=== PATIENT | male | born 1955 | race Caucasian/White ===

== ENCOUNTER 2020-10-12 09:25 | Inpatient (IN) | payer OTHER, SELFPAY ==
[~2020-10-12] VITALS: Ht 180.3 cm; Wt 81.6 kg
[~2020-10-12 09:25] MED LIST: IBUP-1017 PO; PCN PO
--- NOTE | 2020-10-12 09:28 | NUR ---
Patient to ER bed 08 to gown for evaluation. Side rails up.
--- NOTE | 2020-10-12 09:30 | NUR ---
Pt walked in to ER with c/o left foot wound. Reports having a blister and it opened. Pt is currently taking keflex and bactrim for wound but it's gotten worse. Redness and swelling noted to side of left foot. Pt reports pain 8/10. V/S stable,
[2020-10-12 09:34] VITALS: BP_SYST 125
--- NOTE | 2020-10-12 09:35 | NUR ---
ER Dr. Petersen at bedside examining patient.
--- NOTE | 2020-10-12 09:55 | NUR ---
# 20 gauge angiocath placed to LFA. Use of asceptic technique. Opsite placed over site. Blood return noted. Blood for lab drawn from site. Flushed with 10 cc of normal saline. No evidence of infiltration noted. Patient tolerated well.
--- NOTE | 2020-10-12 10:04 | NUR ---
Radiology at bedside for CXR and Foot x-ray
[2020-10-12 10:19] LABS: BASOPHILS # (AUTO) 0.1 K/uL (0.0-0.2); BASOPHILS % (AUTO) 0.8 % (0.0-2.0); EOSINOPHILS # (AUTO) 0.1 K/uL (0.0-0.4); EOSINOPHILS % (AUTO) 0.5 % (0.0-4.0); HEMATOCRIT 43.1 % (36-54); HEMOGLOBIN 14.2 g/dL (14.0-18.0); LYMPHOCYTES # (AUTO) 1.6 K/uL (1.0-5.5); LYMPHOCYTES % (AUTO) 10.5 % (20.5-51.5); MEAN CORPUSCULAR HEMOGLOBIN 30 pg (27-31); MEAN CORPUSCULAR HGB CONC 33 % (32-36); MEAN CORPUSCULAR VOLUME 91 fL (79.0-98.0); MONOCYTES # (AUTO) 1.3 K/uL (0.0-1.0); MONOCYTES % (AUTO) 8.6 % (1.7-9.3); NEUTROPHILS # (AUTO) 11.9 K/uL (1.8-7.7); NEUTROPHILS % (AUTO) 79.6 % (40.0-70.0); PLATELET COUNT (AUTO) 292 K/uL (130-430); RED BLOOD CELL COUNT(AUTO) 4.75 MIL/uL (4.2-6.2); RED CELL DISTRIBUTION WIDTH 13.4 % (9.0-15.0); WHITE BLOOD COUNT (AUTO) 14.9 K/uL (4.8-10.8)
[2020-10-12] MEDS ORDERED: GLUXR500 PO (10:26)
[2020-10-12] MEDS ORDERED: METF-518 PO (10:26)
[2020-10-12] MEDS ORDERED: GLIP10TA11 PO (10:26)
--- NOTE | 2020-10-12 10:26 | NUR ---
Med rec and belongings list completed. Pt's family aware of admit.
[2020-10-12 11:16] LABS: CALCIUM 8.6 mg/dL (8.4-11.0); POTASSIUM 4.5 mmol/L (3.5-5.1)
[2020-10-12 11:17] LABS: CREATININE 0.93 mg/dL (0.55-1.30)
[2020-10-12 11:20] LABS: INR 0.9 (0.80-1.20); PROTHROMBIN TIME 9.7 SECS (9.5-12.5)
[2020-10-12 11:23] LABS: TOTAL BILIRUBIN 0.5 mg/dL (0.0-1.0)
--- NOTE | 2020-10-12 11:40 | NUR ---
Admit orders received from Dr. Matute, pt to go to med-surg bed 119B
[2020-10-12] MEDS ORDERED: PIPERACILLIN/TAZO 4.5 GM in NS 100 ML IV ONE (11:45)
[2020-10-12] MEDS ORDERED: PIPERACILLIN/TAZOBACTAM 4.5 GM/VIAL (ZOSYN) IV ONE (11:49)
--- NOTE | 2020-10-12 12:02 | NUR ---
Patient will be admitted to care of Dr. Matute. Admitted to med-surg unit. Will go to room 119B. Belongings list completed. Complete and up to date summary report printed. SBAR report to be given at bedside with opportunity for questions.
--- NOTE | 2020-10-12 12:30 | NUR ---
Patient received ER nurse gave report on patient, in stable condition, A&0 x4 no complaint of pain or discomfort. Educated on plan of care and unit, patient verbalized understanding. IV is infusing, no sign s or symptoms infiltration. Bed is in lowest position, call light within reach. Fall and aspiration precautions are in place. Will continue to monitor.
[2020-10-12 12:35] VITALS: BP_SYST 145
[2020-10-12 13:32] VITALS: BP_SYST 145
[2020-10-12] MEDS ORDERED: GLUCOSE (DEXTROSE) ORAL GEL -Adults PO PRN (13:45)
[2020-10-12] MEDS ORDERED: D5W 1,000 ML IV PRN (13:45)
[2020-10-12] MEDS ORDERED: DEXTROSE 50%-WATER 50 ML DISP.SYRIN IVP PRN (13:45)
[2020-10-12] MEDS: VANCOMYCIN HCL 1,250 MG in NS 250 ML IV SCH (15:15)
[2020-10-12 15:16] VITALS: BP_SYST 138
[2020-10-12] MEDS: PIPERACILLIN/TAZO 3.375/DEX-IS 50 ML IV SCH (17:38)
[2020-10-12] MEDS: INSULIN REGULAR, HUMAN 100 UNITS/ML, 10 ML VIAL (humuLIN R) SUBCUT PRN ×2 (17:41→20:41)
[2020-10-12] MEDS: OXYCODONE/ACETAMINOPHEN *10*mg/325 mg TABLET PO PRN (17:44)
[2020-10-12 19:00] VITALS: BP_SYST 104
--- NOTE | 2020-10-12 19:15 | NUR ---
change of shift.pt.presents quiescent affect;calm,resting viewing tv programming via table/cell phone.wound;rt.foot.pt.presents diabetic hx. pt.presents iv access location lt.forearm intact;iv fluids ns flush infusing.pt.stated he can ambulate w/out assistance.urinal w/in access of the pt.general status stable.respiratory status stable;unlabored@room air.call light/telephone w/in access of the pt.
[2020-10-12 20:00] VITALS: BP_SYST 104
--- NOTE | 2020-10-12 20:00 | NUR ---
pt.assessed.v/s assessed values wnl.no c/o pain,nausea.iv access intact patent iv fluids ns-flush infusing.i have attended to the urinal measured placed w/in access of the pt.general status stable.respiratory status stable.pt.capable to reposition self.i have assessed the wound;rt.foot.call light/telephone w/in access of the pt.
--- NOTE | 2020-10-12 20:30 | NUR ---
blood glucose assessed value;279mg/dl.
[2020-10-12] MEDS: ENOXAPARIN SODIUM 40 MG/0.4 ML SYRINGE SUBCUT SCH (20:39)
--- NOTE | 2020-10-12 21:00 | NUR ---
2100pmedications administered.pt.capable to ingest the po medications w/out difficulty.i have administered insulin;regular:6-units. pt.requested snacks:milk/lisa crackers provided.no c/o pain,,nausea.call light/telephone w/in access of the pt.
--- NOTE | 2020-10-12 22:00 | NUR ---
pt.assessed.pt.presents quiescent affect;calm,resting.i have attended to the urinal measured place w/in access of the pt.iv access intact iv fluids infusing.no c/o pain,nausea.pt.capable to reposition self.general status stable.respiratory status stable;unlabored.call light/telephone w/in access of the pt.
[2020-10-13] VITALS: BP_SYST 108
--- NOTE | 2020-10-13 | NUR ---
pt.assessed.v/s assessed values wnl.no c/o pain,nausea.no requests posited@this hour.iv access intact iv fluids infusing. i have administered zosyn abx ivpb midnight dose.pt.capable to reposition self.general status stable.respiratory status stable;unlabored.call light/telephone w/in access of the pt.
[2020-10-13] MEDS: PIPERACILLIN/TAZO 3.375/DEX-IS 50 ML IV SCH ×5 (00:05→23:55)
[2020-10-13] MEDS: OXYCODONE/ACETAMINOPHEN *10*mg/325 mg TABLET PO PRN ×3 (00:40→21:55)
--- NOTE | 2020-10-13 00:45 | NUR ---
pt.requested medication;pain.i have administered percocet;10/325mg po.to assess the efficacy of the pain medication per pain mgx protocol.no additional requests posited @this hour.
--- NOTE | 2020-10-13 02:00 | NUR ---
pt.assessed.pt.presents quiescent affect;calm,somnolent.per flacc pain mgx pt.absent facial grimaces/body posturing.iv access intact iv fluids infusing.urinal attended to measured placed w/in access of the pt.pt.capable to reposition self.call light/telephone w/in access of the pt.
--- NOTE | 2020-10-13 03:00 | NUR ---
i have administered vancomycin abx ivpb 0300a dose@this hour.
[2020-10-13] MEDS: VANCOMYCIN HCL 1,250 MG in NS 250 ML IV SCH ×2 (03:17→15:19)
--- NOTE | 2020-10-13 04:00 | NUR ---
pt.assessed.pt.presents quiescent affect;calm,somnolent.per flacc pain mgx pt.absent facial grimaces/body posturing.iv access intact iv fluids/vancomycin abx administration in progress.pt.capable to reposition self.general status stable.respiratory status stable;unlabored.call light/telephone w/in access of the pt.urinal attended to placed w/in access of the pt.
[2020-10-13] MEDS: INSULIN REGULAR, HUMAN 100 UNITS/ML, 10 ML VIAL (humuLIN R) SUBCUT PRN ×4 (06:43→21:56)
--- NOTE | 2020-10-13 06:45 | NUR ---
pt.assessed.blood glucose assessed value;257mg/dl.i have administered insulin;regular-6units.no c/o pain,nausea.i have attended to the urinal measured placed w/in access of the pt.i have attended to the wound care;photographed the wound.pt.capable to reposition self.i have administered zosyn abx ivpb 600a dose.call light/telephone w/in access of the pt.
[2020-10-13 07:06] LABS: BASOPHILS # (AUTO) 0.1 K/uL (0.0-0.2); BASOPHILS % (AUTO) 0.5 % (0.0-2.0); EOSINOPHILS # (AUTO) 0.2 K/uL (0.0-0.4); EOSINOPHILS % (AUTO) 1.6 % (0.0-4.0); HEMATOCRIT 38.9 % (36-54); HEMOGLOBIN 12.8 g/dL (14.0-18.0); LYMPHOCYTES # (AUTO) 2.6 K/uL (1.0-5.5); LYMPHOCYTES % (AUTO) 22.1 % (20.5-51.5); MEAN CORPUSCULAR HEMOGLOBIN 30 pg (27-31); MEAN CORPUSCULAR HGB CONC 33 % (32-36); MEAN CORPUSCULAR VOLUME 90 fL (79.0-98.0); MONOCYTES % (AUTO) 8.3 % (1.7-9.3); NEUTROPHILS % (AUTO) 67.5 % (40.0-70.0); PLATELET COUNT (AUTO) 246 K/uL (130-430); RED CELL DISTRIBUTION WIDTH 13.6 % (9.0-15.0); WHITE BLOOD COUNT (AUTO) 11.9 K/uL (4.8-10.8)
[2020-10-13 07:31] LABS: CALCIUM 8.4 mg/dL (8.4-11.0); CREATININE 0.74 mg/dL (0.55-1.30); POTASSIUM 4.5 mmol/L (3.5-5.1)
--- NOTE | 2020-10-13 08:50 | NUR ---
Opening note Patient is resting in bed A&O x4 no complaint of pain or discomfort, no signs or symptoms of respiratory distress. IV is in place no signs or symptoms of infiltration. Educated patient on plan of care, patient verbalized understanding. swelling in foot is going down. Bed is in lowest position , call light within reach. Fall and aspiration precautions are in place. will continue to monitor.
[2020-10-13 08:55] VITALS: BP_SYST 104
[2020-10-13] MEDS: lisinopriL 5 MG TABLET PO SCH (09:17)
[2020-10-13 09:40] LABS: C-REACTIVE PROTEIN QUANT 7.5 mg/dL (0-0.5)
[2020-10-13 11:30] VITALS: BP_SYST 120
--- NOTE | 2020-10-13 14:50 | NUR ---
RN note Assessed patients wound with wound care nurse Abe. Cleansed and applied dressing with new orders from Abe. Abe recommends surgical consult for patients wound, will inform .
[2020-10-13] MEDS ORDERED: BALSAM PERU/CASTOR OIL 60 GM OINT...G. TP SCH (15:15)
--- NOTE | 2020-10-13 15:23 | NUR ---
Dietitian Recommendations * Recommend [facility] diet w/ Hira BID (supplement provides 180 kcal/day, 5 gm protein/day) ELISE GOTTLIEB Please refer to Nutrition Assessment for details. Addendum: 10/13/20 at [address] Amended: Links added.
--- NOTE | 2020-10-13 15:28 | NUR ---
WOUND EVALUATION: Wound Consult received from Dr. Matute. Thank you, Dr. Matute, for the consult. Patient received in a Hurt Bed with a mattress, awake, alert, and oriented. Patient is unable to turn independently. Ranulfo Score is a 20. Past Medical History: Diabetes Mellitus, Cholecystectomy. Recent Labs: WBC 11.9, RBC 4.30, hemoglobin 12.8, hematocrit 38.9. Electrolytes within normal limits. Glucose 253, POC glucose 224, C-reactive protein 7.5. Microbiology: Blood culture results x2 in progress. Intrinsic factors that delay wound healing: Diabetes Mellitus, Hyperglycemia. Extrinsic factors that delay wound healing: Decreased mobility. Wound Assessment: 1. Right Lateral Foot near Fifth Metatarsal Head: Diabetic Ulcer, present on admission. Wound site has large bulla with open area. Wound bed has 65% yellow tissue, 5% red tissue, and 30% black tissue with red discoloration (bulla). No odor, scant yellow-red drainage. Gemini-wound intact. Measures 4.5 cm x 4.2 cm x 0.5 cm. Recommend: Cleanse wound with normal saline. Apply moisture barrier cream to gemini-wound. Apply Venelex ointment to wound bed. Cover with foam dressing. Wrap with Alis wrap. Perform wound care daily, and as needed for dressing soiling or dislodgement. Also recommend: Reposition patient every 2 hours with pillow support and off-load pressure areas with pillows for pressure re-distribution. Offload, elevate and float bilateral heels with pillows. Perform skin care and monitor skin integrity Q shift. Recommend surgical consult.
[2020-10-13] MEDS ORDERED: BALSAM PERU/CASTOR OIL 60 GM OINT...G. TP ONE (15:30)
[2020-10-13 15:46] VITALS: BP_SYST 104
--- NOTE | 2020-10-13 18:45 | NUR ---
Closing note Patient is resting in bed A&O x4 no complaint of pain or discomfort, no signs or symptoms of respiratory distress. IV is in place no signs or symptoms of infiltration. All needs were met. Bed is in lowest position , call light within reach. Fall and aspiration precautions are in place. Will endorse report to shift stacker.
[2020-10-13 20:00] VITALS: BP_SYST 114
--- NOTE | 2020-10-13 20:14 | NUR ---
OPENING NOTES RECEIVED PATIENT RESTING IN BED, NO SIGNS OF DISTRESS NOTED. CALL LIGHT WITHIN REACH, PATIENT DEMONSTRATES PROPER USAGE OF CALL LIGHT. BED ALARM ON, BED AT LOWEST POSITION, BED LOCKED. FALL, RESPIRATORY, SAFETY, AND ASPIRATION PRECAUTIONS IN PLACE. DRESSING CHANGE WAS PROVIDED BY AM SHIFT, PER AM NURSE. WILL CONTINUE TO MONITOR. Addendum: 10/13/20 at 2015 by Kim Lobo RN WRONG TIME- CORRECT TIME IS 1914
--- NOTE | 2020-10-13 20:15 | NUR ---
PATIENT RESTING, NO SIGNS OF DISTRESS NOTED. PATIENT REFUSES TO HAVE BOTH SIDE RAILS TO BE ELEVATED. PATIENT EDUCATION PROVIDED OF THE RISKS FOR FALLS, AND PATIENT REFUSES. CALL LIGHT WITHIN REACH. PATIENT DEMONSTRATES PROPER USAGE. WILL CONTINUE TO MONITOR CLOSELY.
[2020-10-13] MEDS: ENOXAPARIN SODIUM 40 MG/0.4 ML SYRINGE SUBCUT SCH (21:55)
[2020-10-14 01:10] VITALS: BP_SYST 101
[2020-10-14] MEDS: VANCOMYCIN HCL 1,250 MG in NS 250 ML IV SCH ×2 (02:49→16:30)
[2020-10-14] MEDS: PIPERACILLIN/TAZO 3.375/DEX-IS 50 ML IV SCH ×3 (05:59→17:48)
--- NOTE | 2020-10-14 06:25 | NUR ---
CLOSING NOTES PATIENT RESTING IN BED, NO SIGNS OF DISTRESS NOTED. CALL LIGHT WITHIN REACH, PATIENT DEMONSTRATED PROPER USAGE OF CALL LIGHT. BED ALARM ON, BED AT LOWEST POSITION, BED LOCKED. FALL, RESPIRATORY, SAFETY, AND ASPIRATION PRECAUTIONS IN PLACE THROUGHOUT SHIFT. ALL NEEDS MET THROUGHOUT SHIFT. WILL ENDORSE CARE TO ONCOMING SHIFT.
[2020-10-14] MEDS: INSULIN REGULAR, HUMAN 100 UNITS/ML, 10 ML VIAL (humuLIN R) SUBCUT PRN ×4 (06:33→21:10)
--- NOTE | 2020-10-14 07:10 | NUR ---
opening note Received SBAR from night RN, patient in bed, respirations even, non labored, bed in low and locked position call light within reach, patient only has 1 bed rail up refuses to allow additional bed rails or bed alarm to be used. Educated patient on the indications and safety regarding bed rails and bed alarm, answered all questions, patient verbalized understanding, patient continues to refuse. IVF's running as ordered.
[2020-10-14 08:00] VITALS: BP_SYST 100
[2020-10-14] MEDS: OXYCODONE/ACETAMINOPHEN *10*mg/325 mg TABLET PO PRN ×2 (08:56→20:58)
[2020-10-14] MEDS: lisinopriL 5 MG TABLET PO SCH (08:56)
[2020-10-14] MEDS: BALSAM PERU/CASTOR OIL 60 GM OINT...G. TP SCH (09:00)
[2020-10-14 12:07] VITALS: BP_SYST 112
--- NOTE | 2020-10-14 13:35 | NUR ---
wound care provided wound care, see mst shift assessment
[2020-10-14 14:35] LABS: ALBUMIN 2.4 g/dL (3.4-4.8); CALCIUM 8.3 mg/dL (8.4-11.0); CREATININE 1.18 mg/dL (0.55-1.30); POTASSIUM 4.3 mmol/L (3.5-5.1); TOTAL BILIRUBIN 0.3 mg/dL (0.0-1.0)
--- NOTE | 2020-10-14 15:43 | NUR ---
CONSULTATION: REASON FOR CONSULT: CELLULITIS AND ULCERATION OF RT FOOT CONSULTING PHYSICIAN: ELSA ORDERED BY: STEPHEN SPOKE WITH [facility] [phone]
[2020-10-14 16:08] VITALS: BP_SYST 96
--- NOTE | 2020-10-14 16:55 | NUR ---
CONSULTATION: REASON FOR CONSULT: CELLULITIS CONSULTING PHYSICIAN: LEORA ORDERED BY: STEPHEN SPOKE WITH [facility] [phone]
--- NOTE | 2020-10-14 19:24 | NUR ---
closing note Provided sbar to night RN, patient in bed, respirations even, non labored, bed in low and locked position call light within reach, Patient continues to refuse bed alarm or bed rails. endorsed care to night rn
--- NOTE | 2020-10-14 19:30 | NUR ---
opening note rcvd pt from dayshift rn. patient in bed, respirations even, non labored, bed in low and locked position call light within reach, patient only has 1 bed rail up refuses to allow additional bed rails or bed alarm to be used. IVF's running as ordered on the LFA#22 gauge, no infiltration. urinal at bedside. safety, fall precautios in place. will continue to monitor.
[2020-10-14 20:00] VITALS: BP_SYST 112
[2020-10-14] MEDS: LINEZOLID 300 ML IV SCH (20:59)
[2020-10-14] MEDS: ENOXAPARIN SODIUM 40 MG/0.4 ML SYRINGE SUBCUT SCH (21:00)
--- NOTE | 2020-10-14 21:00 | NUR ---
RN Rounds Pt vital signs stable. pt tolerated medications. will continue to monitor .
[2020-10-15] MEDS: PIPERACILLIN/TAZO 3.375/DEX-IS 50 ML IV SCH ×2 (00:43→06:30)
[2020-10-15 01:55] VITALS: BP_SYST 109
[2020-10-15] MEDS: INSULIN REGULAR, HUMAN 100 UNITS/ML, 10 ML VIAL (humuLIN R) SUBCUT PRN ×4 (06:28→21:31)
[2020-10-15 06:52] LABS: CALCIUM 8.1 mg/dL (8.4-11.0); CREATININE 0.85 mg/dL (0.55-1.30); POTASSIUM 4.5 mmol/L (3.5-5.1)
--- NOTE | 2020-10-15 07:36 | NUR ---
CLOSING NOTE: patient in bed, respirations even, non labored, bed in low and locked position call light within reach, patient only has 1 bed rail up refuses to allow additional bed rails or bed alarm to be used. IVF's running as ordered on the LFA#22 gauge, no infiltration. urinal at bedside. safety, fall precautios in place. will endorse to dayshift
[2020-10-15 08:00] VITALS: BP_SYST 107
--- NOTE | 2020-10-15 08:00 | NUR ---
OPENING NOTES: PATIENT EATING BREAKFAST. NO SIGNS OF ACUTE DISTRESS NOTED. FALL AND SAFETY PRECAUTION REINFORCED. CALL LIGHT WITHIN REACH.
[2020-10-15 08:12] LABS: BASOPHILS # (AUTO) 0.2 K/uL (0.0-0.2); BASOPHILS % (AUTO) 1.5 % (0.0-2.0); EOSINOPHILS # (AUTO) 0.3 K/uL (0.0-0.4); EOSINOPHILS % (AUTO) 1.8 % (0.0-4.0); HEMATOCRIT 37.9 % (36-54); HEMOGLOBIN 12.9 g/dL (14.0-18.0); LYMPHOCYTES # (AUTO) 2.7 K/uL (1.0-5.5); LYMPHOCYTES % (AUTO) 19.2 % (20.5-51.5); MEAN CORPUSCULAR HEMOGLOBIN 31 pg (27-31); MEAN CORPUSCULAR HGB CONC 34 % (32-36); MEAN CORPUSCULAR VOLUME 91 fL (79.0-98.0); MONOCYTES # (AUTO) 1.4 K/uL (0.0-1.0); MONOCYTES % (AUTO) 10.1 % (1.7-9.3); NEUTROPHILS # (AUTO) 9.5 K/uL (1.8-7.7); NEUTROPHILS % (AUTO) 67.4 % (40.0-70.0); PLATELET COUNT (AUTO) 405 K/uL (130-430); RED BLOOD CELL COUNT(AUTO) 4.18 MIL/uL (4.2-6.2); RED CELL DISTRIBUTION WIDTH 13.3 % (9.0-15.0); WHITE BLOOD COUNT (AUTO) 14.1 K/uL (4.8-10.8)
[2020-10-15] MEDS: lisinopriL 5 MG TABLET PO SCH (08:29)
[2020-10-15] MEDS: LINEZOLID 300 ML IV SCH ×2 (08:29→21:37)
[2020-10-15] MEDS: BALSAM PERU/CASTOR OIL 60 GM OINT...G. TP SCH (09:12)
[2020-10-15 12:14] VITALS: BP_SYST 125
[2020-10-15 16:35] VITALS: BP_SYST 127
--- NOTE | 2020-10-15 19:21 | NUR ---
CLOSING NOTES; PATIENT RESTING IN BED. NO SIGNS OF ACUTE DISTRESS NOTED. WOUND DRESSING CHANGED. FALL AND SAFETY PRECAUTION REINFORCED. CALL LIGHT WITHIN REACH.
--- NOTE | 2020-10-15 19:30 | NUR ---
opening note rcvd pt from dayshift rn. patient in bed, respirations even, non labored, bed in low and locked position call light within reach, IVF's running as ordered on the LFA#22 gauge, no infiltration. urinal at bedside. safety, fall precautios in place. will continue to monitor.
[2020-10-15 20:00] VITALS: BP_SYST 108
[2020-10-15] MEDS: CEFEPIME 1 GM in D5W 50 ML IV SCH (21:24)
[2020-10-15] MEDS: ENOXAPARIN SODIUM 40 MG/0.4 ML SYRINGE SUBCUT SCH (21:25)
[2020-10-15] MEDS: OXYCODONE/ACETAMINOPHEN *10*mg/325 mg TABLET PO PRN (21:25)
--- NOTE | 2020-10-15 21:30 | NUR ---
RN Rounds Pt vital signs stable. pt tolerated medications. will continue to monitor .
--- NOTE | 2020-10-15 22:30 | NUR ---
Reinforced pt dressing to R foot
--- NOTE | 2020-10-16 | NUR ---
RN ROUNDS PT VITAL SIGNS STABLE. RESTING IN BED. IVF AND ABX RUNNING ORDERED NO SIGNS OF INFILTRATION .WILL CTM
[2020-10-16 00:56] VITALS: BP_SYST 120
[2020-10-16] MEDS: INSULIN REGULAR, HUMAN 100 UNITS/ML, 10 ML VIAL (humuLIN R) SUBCUT PRN ×4 (06:07→21:49)
--- NOTE | 2020-10-16 06:44 | NUR ---
CLOSING NOTES PATIENT RESTING IN BED. NO SIGNS OF ACUTE DISTRESS NOTED. BREATHING ON ROOM AIR NONLABORED. FALL AND SAFETY PRECAUTION REINFORCED. CALL LIGHT WITHIN REACH.
[2020-10-16 08:00] VITALS: BP_SYST 115
--- NOTE | 2020-10-16 08:00 | NUR ---
Initial note: Patient is alert, oriented x4, denies any pain or discomfort at this time. Right foot wound is with a foam dressing with 50% drainage oozing on the dressing. Will change a new dressing later this morning.
[2020-10-16] MEDS: lisinopriL 5 MG TABLET PO SCH (09:09)
[2020-10-16] MEDS: CEFEPIME 1 GM in D5W 50 ML IV SCH ×2 (09:10→20:34)
[2020-10-16] MEDS: LINEZOLID 300 ML IV SCH ×2 (09:34→21:48)
[2020-10-16] MEDS: BALSAM PERU/CASTOR OIL 60 GM OINT...G. TP SCH (09:35)
[2020-10-16 11:18] LABS: BASOPHILS # (AUTO) 0.1 K/uL (0.0-0.2); BASOPHILS % (AUTO) 0.5 % (0.0-2.0); EOSINOPHILS # (AUTO) 0.2 K/uL (0.0-0.4); EOSINOPHILS % (AUTO) 1.9 % (0.0-4.0); HEMATOCRIT 41.6 % (36-54); HEMOGLOBIN 13.5 g/dL (14.0-18.0); LYMPHOCYTES # (AUTO) 1.7 K/uL (1.0-5.5); LYMPHOCYTES % (AUTO) 14.2 % (20.5-51.5); MEAN CORPUSCULAR HEMOGLOBIN 29 pg (27-31); MEAN CORPUSCULAR HGB CONC 32 % (32-36); MEAN CORPUSCULAR VOLUME 90 fL (79.0-98.0); MONOCYTES % (AUTO) 8.5 % (1.7-9.3); NEUTROPHILS # (AUTO) 9.2 K/uL (1.8-7.7); NEUTROPHILS % (AUTO) 74.9 % (40.0-70.0); PLATELET COUNT (AUTO) 303 K/uL (130-430); RED BLOOD CELL COUNT(AUTO) 4.65 MIL/uL (4.2-6.2); RED CELL DISTRIBUTION WIDTH 13.3 % (9.0-15.0); WHITE BLOOD COUNT (AUTO) 12.2 K/uL (4.8-10.8)
[2020-10-16 12:04] LABS: ERYTHROCYTE SEDIMENTATION RATE 61 MM/HR (0-15)
[2020-10-16 12:26] VITALS: BP_SYST 111
[2020-10-16 16:11] VITALS: BP_SYST 129
--- NOTE | 2020-10-16 18:46 | NUR ---
closing note: Patient is stable, resting well, no fever, no complaint of pain or discomfort.
--- NOTE | 2020-10-16 19:15 | NUR ---
OPENING NOTE PATIENT IN BED, AWAKE, NO S/S OF ACUTE DISTRESS NOTED. HOB RAISED. BREATHING EVEN AND UNLABORED. IV SITE PATENT, NO SIGNS OF INFILTRATION. CALL LIGHT WITH PATIENT, DEMONSTRATED BACK PROPER USE. BED IS LOCKED AND AT LOWEST POSITION. WILL CONTINUE TO MONITOR.
[2020-10-16 20:00] VITALS: BP_SYST 121
[2020-10-16] MEDS: ENOXAPARIN SODIUM 40 MG/0.4 ML SYRINGE SUBCUT SCH (21:49)
[2020-10-17 00:39] VITALS: BP_SYST 99
[2020-10-17] MEDS: INSULIN REGULAR, HUMAN 100 UNITS/ML, 10 ML VIAL (humuLIN R) SUBCUT PRN ×4 (06:45→21:41)
--- NOTE | 2020-10-17 06:55 | NUR ---
CLOSING NOTE PATIENT IN BED, AWAKE, WATCHING ON HIS IPAD. NO S/S OF ACUTE DISTRESS. BREATHING EVEN AND UNLABORED. HOB RAISED. IV SITE PATENT, NO SIGNS OF INFILTRATION OR INFECTION. RIGHT FOOT ELEVATED, DRESSING CLEAN DRY AND INTACT. SKIN WARM AND DRY, NO SIGNS OF HYPOGLYCEMIA NOTED. ALL NEEDS MET THROUGHOUT SHIFT. FALL AND SAFETY ISOLATION PRECAUTIONS MAINTAINED THROUGHOUT SHIFT. WILL CONTINUE TO MONITOR UNTIL PATIENT CARE IS ENDORSED TO ONCOMING DAYSHIFT NURSE.
[2020-10-17 08:00] VITALS: BP_SYST 111
[2020-10-17] MEDS: LINEZOLID 300 ML IV SCH ×2 (09:36→21:40)
[2020-10-17] MEDS: lisinopriL 5 MG TABLET PO SCH (09:36)
[2020-10-17] MEDS: CEFEPIME 1 GM in D5W 50 ML IV SCH ×2 (09:36→20:25)
[2020-10-17] MEDS: BALSAM PERU/CASTOR OIL 60 GM OINT...G. TP SCH (09:37)
[2020-10-17 12:02] VITALS: BP_SYST 111
[2020-10-17 16:00] VITALS: BP_SYST 123
--- NOTE | 2020-10-17 19:15 | NUR ---
OPENING NOTE PATIENT IN BED, NO S/S OF ACUTE DISTRESS NOTED. BREATHING EVEN AND UNLABORED. IV SITE PATENT, NO SIGNS OF INFILTRATION OR INFECTION. SKIN WARM AND DRY TO TOUCH, NO S/S OF HYPOGLYCEMIA NOTED. CALL LIGHT WITH PATIENT. SAFETY PRECAUTIONS IN PLACE. WILL CONTINUE TO MONITOR.
[2020-10-17 20:00] VITALS: BP_SYST 118
[2020-10-17] MEDS: ENOXAPARIN SODIUM 40 MG/0.4 ML SYRINGE SUBCUT SCH (20:32)
[2020-10-18 00:18] VITALS: BP_SYST 127
[2020-10-18] MEDS: INSULIN REGULAR, HUMAN 100 UNITS/ML, 10 ML VIAL (humuLIN R) SUBCUT PRN ×2 (06:13→11:39)
--- NOTE | 2020-10-18 06:40 | NUR ---
CLOSING NOTE PATIENT IN BED, SLEEPING. NO S/S OF ACUTE DISTRESS NOTED. BREATHING EVEN AND UNLABORED. IV SITE PATENT, NO SIGNS OF INFILTRATION OR INFECTION NOTED. SKIN WARM AND DRY TO TOUCH, NO S/S OF HYPOGLYCEMIA NOTED. ALL NEEDS MET THROUGHOUT SHIFT. FALL AND SAFETY PRECAUTIONS MAINTAINED THROUGHOUT SHIFT. WILL CONTINUE TO MONITOR UNTIL PATIENT CARE IS ENDORSED TO ONCOMING DAYSHIFT NURSE.
[2020-10-18 08:00] VITALS: BP_SYST 131
--- NOTE | 2020-10-18 10:00 | NUR ---
WOUND CARE DONE, PT TOLERATED WELL.
[2020-10-18] MEDS: CEFEPIME 1 GM in D5W 50 ML IV SCH (10:01)
[2020-10-18] MEDS: lisinopriL 5 MG TABLET PO SCH (10:01)
[2020-10-18] MEDS: LINEZOLID 300 ML IV SCH (10:02)
[2020-10-18] MEDS: BALSAM PERU/CASTOR OIL 60 GM OINT...G. TP SCH (10:08)
[2020-10-18] MEDS ORDERED: FLUCONAZOLE 200 mg/ NS 100 ML IV SCH (11:15)
[2020-10-18 11:29] LABS: BASOPHILS # (AUTO) 0.1 K/uL (0.0-0.2); BASOPHILS % (AUTO) 0.5 % (0.0-2.0); EOSINOPHILS # (AUTO) 0.2 K/uL (0.0-0.4); HEMATOCRIT 43.2 % (36-54); LYMPHOCYTES # (AUTO) 1.6 K/uL (1.0-5.5); LYMPHOCYTES % (AUTO) 12.7 % (20.5-51.5); MEAN CORPUSCULAR HEMOGLOBIN 29 pg (27-31); MEAN CORPUSCULAR HGB CONC 33 % (32-36); MEAN CORPUSCULAR VOLUME 90 fL (79.0-98.0); MONOCYTES % (AUTO) 7.9 % (1.7-9.3); NEUTROPHILS # (AUTO) 9.6 K/uL (1.8-7.7); NEUTROPHILS % (AUTO) 76.9 % (40.0-70.0); PLATELET COUNT (AUTO) 331 K/uL (130-430); RED BLOOD CELL COUNT(AUTO) 4.82 MIL/uL (4.2-6.2); RED CELL DISTRIBUTION WIDTH 13.9 % (9.0-15.0); WHITE BLOOD COUNT (AUTO) 12.5 K/uL (4.8-10.8)
[2020-10-18 11:46] LABS: ALBUMIN 2.6 g/dL (3.4-4.8); BILIRUBIN,DIRECT 0.1 mg/dL (0.0-0.3); TOTAL BILIRUBIN 0.1 mg/dL (0.0-1.0)
[2020-10-18 12:07] VITALS: BP_SYST 116
--- NOTE | 2020-10-18 12:54 | NUR ---
Nutrition F/U Admitting Diagnosis: Cellulitis R foot Medical History Comment: PMH: DM per physician notes 10/18 notes: HTN, Right Lateral Foot Abscess SARS-CoV-2 Ag (Rapid) Negative 10/12 Subjective Information: RD met pt at bedside during visit. Pt reports good appetite and tolerance to Hira BID. Pt states that he has been drinking modular regularly. Pt is S/P debridement at bedside, pt continues to c/o pain. Per EMR, last BM 10/17 x1. Per child care specialist note 10/13: 1. Right Lateral Foot near Fifth Metatarsal Head: Diabetic Ulcer, present on admission. Ranulfo scale: 21. Non-pitting edema to right foot. PO intake is good (89% average of 9 meals). Pt is tolerating diet and current diet order remains adequate and appropriate. ID , RN [place] and RODOLFO Wesley at bedside during visit. DC planning home. Hira kit provided during this visit. Current Diet Order/Nutrition Support: CCHO diet, Hira BID x5 days Pertinent Medications: glipizide, SSI, Lovenox Pertinent Labs: 10/18 WBC 12.2 H, POC BG 263 H Height: 5 feet, 11.00 inches Weight: 180 pounds/ 81.154930 kilograms (10/13) --stable Body Mass Index: 25.10 kg/m2 [place]/Adjusted Body Weight: 172#/78 kg Estimated Energy Expenditure (kcals/day) 5389-0341 kcal/day (30-35 kcal/kg CBW for infection, wound healing) Estimated Protein Required (g/day) 98-123 gm/day (1.2-1.5 gm/kg CBW for infection, wound healing) Estimated Fluid Required (l/day) 2.5-2.9 L/day (1 ml/kcal/day for maintenance) Problem/Etiology/Signs/Symptoms Increased nutritional needs related to metabolic demands as evidenced by estimated nutritional requirements for infection and wound healing. (*ongoing) Altered nutrition related labs r/t endocrine dysfunction AEB elevated BG. (*new) Expected Outcomes/Goals - Monitor appetite and PO intakes w/ goal of pt meeting at least 75% of estimated nutritional needs, labs trending WNL, normal GI function, and skin integrity/wt maintenance Dietitian Recommendations * Recommend continue: CCHO diet w/ Hira BID (supplement provides 180 kcal/day, 5 gm protein/day) Follow Up Mod Risk: F/U in 3-5 days
--- NOTE | 2020-10-18 13:01 | NUR ---
Dietitian Recommendations * Recommend continue: [facility] diet w/ Hira BID (supplement provides 180 kcal/day, 5 gm protein/day) Please see Nutrition F/U note for details. DAVID, RD
--- NOTE | 2020-10-18 14:58 | NUR ---
Patient accepted at [facility] infusion [facility], [address] [address]. Appt is 10:15 AM 10/19. They will provide wound care for the patient per Iris at the infusion Clinic and IV Cubicin daily. Patient agreed to f/u with the clinic and stated understanding of instructions given.
[2020-10-18] MEDS ORDERED: FLUC200T51 PO (16:02)
[2020-10-18] MEDS ORDERED: LISI-209 PO (16:03)
[2020-10-18 16:14] VITALS: BP_SYST 128
[2020-10-18 16:16] VITALS: BP_SYST 128
--- NOTE | 2020-10-18 17:00 | NUR ---
BLOOD SUGAR CHECK NOT DONE DUE TO PT WANTS TO GO HOME.
--- NOTE | 2020-10-18 17:40 | NUR ---
D/C Patient Patient given medication reconciliation form and D/C instructions. Exit Care provided. Patient verbalized understanding. MD discussed with patient the results and treatment provided. Ambulatory with steady gait for discharge to home. Patient in stable condition, ID band removed. IV catheter removed, intact and dressing applied, no active bleeding. Rx of LISINOPRIL AND FLUCONAZOLE given. Patient educated on pain management. All belongings sent with patient.
--- NOTE | 2020-10-20 08:40 | NUR ---
Disposition 01
== END 2020-10-18 17:40 | disposition home or self-care (01) | DRG 623 ==
LOC: SED 09:25 → SMU 11:36
PROVIDERS: ADMIT Family Medicine; ATTEND Family Medicine
PROC: 0JBQ0ZZ Excision of Right Foot Subcutaneous Tissue and Fascia, Open Approach (ICD-10-PCS; principal; 2020-10-14)
DX: E11.621 Type 2 diabetes mellitus with foot ulcer (principal); L02.611 Cutaneous abscess of right foot; L03.115 Cellulitis of right lower limb; L97.518 Non-pressure chronic ulcer of other part of right foot with other specified severity; E11.52 Type 2 diabetes mellitus with diabetic peripheral angiopathy with gangrene; E11.42 Type 2 diabetes mellitus with diabetic polyneuropathy; Z20.822 Contact with and (suspected) exposure to COVID-19; F17.200 Nicotine dependence, unspecified, uncomplicated; I10 Essential (primary) hypertension; R74.01 Elevation of levels of liver transaminase levels; Z90.49 Acquired absence of other specified parts of digestive tract; Z79.899 Other long term (current) drug therapy
CPT/HCPCS: 36415; 71045; 73721; 80048; 80053; 80076; 80202; 82962; 83605; 84484; 85025; 85610-TC; 85651-TC; 85730-TC; 86140; 87040-TC; 87070-TC; 87081; 87186-TC; 88304; 93005; 96374; 99285; J0692; J1450; J1650; J1815; J2020; J2543; J3370; J7050; J7060

== ENCOUNTER 2020-11-05 13:03 | Inpatient (IN) | payer OTHER, SELFPAY ==
[~2020-11-05] VITALS: Ht 175.3 cm; Wt 77.1 kg
[~2020-11-05 13:03] MED LIST changes: +DEXAMETHASONE SOD PHOSPHATE 10 MG/ML VIAL IVP ONE; +FLUC200T51 PO; +GLIP10TA11 PO; -IBUP-1017 PO; +LIDOCAINE 1% 10 MG/ML, 20 ML MDV IM ONE; +LISI-209 PO; +LR 1,000 ML IV.SOLN IV ONE; +METF-518 PO; +METOCLOPRAMIDE HCL 10 MG/2 ML VIAL IVP ONE; +MIDAZOLAM HCL 5 MG/5 ML VIAL IVP ONE; +NS 1000 ML IV.SOLN IV ONE; +NS IRRIG SOLN 1000 ML IR ONE; +ONDANSETRON HCL 4 MG/2 ML VIAL IVP ONE; -PCN PO; +PROPOFOL 200MG/ 20ML VIAL (DIPRIVAN) IV ONE; +SEVOFLURANE 15 MIN GAS INH ONE; +ePHEDrine sulfate 50 MG/ML VIAL IVP ONE; +fentaNYL CITRATE/PF 100 MCG/2 ML AMP IVP ONE
[2020-11-05 13:09] VITALS: BP_SYST 89
--- NOTE | 2020-11-05 13:10 | NUR ---
PT TO REMAIN IN ER LOBBY UNTIL ER BED BECOMES AVAILABLE.
--- NOTE | 2020-11-05 13:50 | NUR ---
ER Dr. Cook in triage room examining patient.
[2020-11-05] MEDS ORDERED: CLINDAMYCIN 600 MG in D5W 50 ML IV ONE (14:15)
--- NOTE | 2020-11-05 14:50 | NUR ---
lab at bedside.
--- NOTE | 2020-11-05 15:00 | NUR ---
PT TO BED 2 FOR EVALUATION. REPORT GIVEN TO MARIA T JUDD WHO WILL ASSUME CARE.
--- NOTE | 2020-11-05 15:05 | NUR ---
Pt came into ER with complaint of right foot pain 5/10 from lateral wound. Pt presenting with lateral foot wound wrapped in gauze with boot placement. Pt AAOX4 resting in gurney VSS attached to monitor no distress noted.
--- NOTE | 2020-11-05 15:05 | NUR ---
Pt reports on the 1st if this month he got a blister that opened up and never healed. He was admitted to the hospital 2 weeks ago for surgical debridement.
[2020-11-05 15:06] LABS: BASOPHILS # (AUTO) 0.1 K/uL (0.0-0.2); BASOPHILS % (AUTO) 0.4 % (0.0-2.0); EOSINOPHILS # (AUTO) 0.1 K/uL (0.0-0.4); EOSINOPHILS % (AUTO) 0.4 % (0.0-4.0); HEMATOCRIT 40.3 % (36-54); HEMOGLOBIN 13.4 g/dL (14.0-18.0); LYMPHOCYTES # (AUTO) 1.7 K/uL (1.0-5.5); LYMPHOCYTES % (AUTO) 7.5 % (20.5-51.5); MEAN CORPUSCULAR HEMOGLOBIN 30 pg (27-31); MEAN CORPUSCULAR HGB CONC 33 % (32-36); MEAN CORPUSCULAR VOLUME 89 fL (79.0-98.0); MONOCYTES % (AUTO) 8.4 % (1.7-9.3); NEUTROPHILS # (AUTO) 19.4 K/uL (1.8-7.7); NEUTROPHILS % (AUTO) 83.3 % (40.0-70.0); PLATELET COUNT (AUTO) 305 K/uL (130-430); RED BLOOD CELL COUNT(AUTO) 4.52 MIL/uL (4.2-6.2); RED CELL DISTRIBUTION WIDTH 13.8 % (9.0-15.0); WHITE BLOOD COUNT (AUTO) 23.3 K/uL (4.8-10.8)
--- NOTE | 2020-11-05 15:09 | NUR ---
Called pharmacy for medication not loaded in pixus.
[2020-11-05] MEDS ORDERED: CLINDAMYCIN PHOS 600 MG/ D5W 50 ML PREMIX IV ONE (15:15)
[2020-11-05 15:21] LABS: INR 0.9 (0.80-1.20); PROTHROMBIN TIME 9.4 SECS (9.5-12.5)
[2020-11-05 15:24] LABS: CALCIUM 9.1 mg/dL (8.4-11.0); CREATININE 1.01 mg/dL (0.55-1.30); POTASSIUM 4.1 mmol/L (3.5-5.1); TOTAL BILIRUBIN 0.2 mg/dL (0.0-1.0)
--- NOTE | 2020-11-05 15:38 | NUR ---
# 20 gauge angiocath placed to RWrist. Use of asceptic technique. Opsite placed over site. Blood return noted. Blood for lab drawn from site. Flushed with 10 cc of normal saline. No evidence of infiltration noted. Patient tolerated well.
[2020-11-05 15:47] LABS: C-REACTIVE PROTEIN QUANT 20.5 mg/dL (0-0.5)
--- NOTE | 2020-11-05 16:55 | NUR ---
X-ray at bedside.
--- NOTE | 2020-11-05 16:57 | NUR ---
Medication reconciliation completed with information provided by Finn LIVE. Any prior medication reconciliation on file was reviewed and corrected.
--- NOTE | 2020-11-05 17:09 | NUR ---
Patient will be admitted to care of Dr. Matute. Admitted to medsurg unit. Will go to room 101A. Belongings list completed. Complete and up to date summary report printed. SBAR report to be given at bedside with opportunity for questions.
[2020-11-05 17:45] VITALS: BP_SYST 122
--- NOTE | 2020-11-05 17:45 | NUR ---
ADMIT NOTE Received pt from ER to the floor with a diagnosis of right foot infection. Admission process initiated. Patient oriented to pain management, safety and call light-teach back done.
--- NOTE | 2020-11-05 18:00 | NUR ---
MD ROUNDS DR. OLIVER SAW PATIENT AT BEDSIDE. NEW ORDERS ENTERED.
[2020-11-05] MEDS: NICOTINE 21 MG/24 HR PATCH.TD24 TD SCH (18:30)
[2020-11-05] MEDS ORDERED: VANCOMYCIN HCL 1 GM/NS PREMIX 250 ML IV SCH (19:00)
[2020-11-05] MEDS: MULTIVITAMINS TAB 1 TABLET PO SCH (19:16)
[2020-11-05] MEDS: OXYCODONE/ACETAMINOPHEN *10*mg/325 mg TABLET PO PRN ×2 (19:17→22:49)
--- NOTE | 2020-11-05 19:18 | NUR ---
CONSULTATION PAGED/CALLED Reason for Consultation: right foot infection Person Who was Notified: Syd Consulting Physician: Gabriel Lyon Air Value Tester Specialty: surgeon Ordering Physician: Dr. Matute
--- NOTE | 2020-11-05 19:21 | NUR ---
CONSULT REASON FOR CONSULT: RT FOOT INFECTION PERSON I SPOKE WITH: ABBE CONSULTING PHYSICIAN: DR. COREY DECAL CUTTER PHONE NUMBER: [phone] ORDERING PHYSICIAN: DR. MITCHELL
--- NOTE | 2020-11-05 19:25 | NUR ---
CHANGE OF SHIFT; endorsed by day shift, new admission today, needs to start IV antibiotics ordered. no acute distress. was just medicated for pain. call light at bedside.
--- NOTE | 2020-11-05 19:27 | NUR ---
CLOSING NOTES RESTING. MEDICATED FOR PAIN. NEEDS MET. SAFETY CHECKS DONE. CALL LIGHT WITHIN REACH. WILL ENDORSE TO NIGHT NURSE.
--- NOTE | 2020-11-05 20:00 | NUR ---
NOTES: pt. one siderail down, will sign waiver for the release, charge nurse informed. VS checked. rt. foot dressing intact. IV lock on rt. forearm. call light within reach.
[2020-11-05 20:15] VITALS: BP_SYST 151
[2020-11-05] MEDS ORDERED: PIPERACILLIN/TAZOBACTAM 3.375 GM/VIAL (ZOSYN) IV ONE (20:16)
[2020-11-05] MEDS ORDERED: VANCOMYCIN HCL 1000 MG/VIAL IV ONE (20:16)
[2020-11-05] MEDS: ASCORBIC ACID 500 MG TABLET PO SCH (20:53)
[2020-11-05] MEDS: ENOXAPARIN SODIUM 40 MG/0.4 ML SYRINGE SUBCUT SCH (21:07)
--- NOTE | 2020-11-05 21:30 | NUR ---
NOTES: Dr. Kyle here and seen pt. and open wound on rt. foot to check, redress after and applied judy bandage with foam dressing intact. started on IV antibiotic via rt. arm IV site. due po medications given.
[2020-11-05] MEDS: PIPERACILLIN/TAZO 3.375/DEX-IS 50 ML IV SCH (21:35)
[2020-11-05] MEDS: INSULIN REGULAR, HUMAN 100 UNITS/ML, 10 ML VIAL (humuLIN R) SUBCUT PRN (22:58)
--- NOTE | 2020-11-05 23:00 | NUR ---
NOTES: medicated with Percocet po for c/o rt. foot pain. BS [address] scale coverage. Dr. Rios order for In cision and drainage of rt. foot wound and possible Amputation of fifth toe, will be NPO after midnight. IV antibiotic still infusing.
[2020-11-06 00:25] VITALS: BP_SYST 116
--- NOTE | 2020-11-06 00:30 | NUR ---
NOTES: pt. checked and sleeping, noted relief from pain.
[2020-11-06] MEDS: PIPERACILLIN/TAZO 3.375/DEX-IS 50 ML IV SCH ×4 (06:40→17:23)
[2020-11-06] MEDS: INSULIN REGULAR, HUMAN 100 UNITS/ML, 10 ML VIAL (humuLIN R) SUBCUT PRN ×3 (06:52→21:08)
[2020-11-06] MEDS: OXYCODONE/ACETAMINOPHEN *10*mg/325 mg TABLET PO PRN ×3 (06:59→21:08)
--- NOTE | 2020-11-06 07:40 | NUR ---
Opening note Received report from night RN. Patient is alert and oriented x 4. On room air and tolerating well with no signs of shortness of breath. IV is patent, saline locked. Bed locked and in lowest position. Patient is NPO for surgery today. Right foot wrapped. Call light within reach. No complaints of pain at this time. Will monitor.
[2020-11-06 08:00] VITALS: BP_SYST 107
[2020-11-06] MEDS ORDERED: GLUCOSE (DEXTROSE) ORAL GEL -Adults PO PRN (08:00)
[2020-11-06] MEDS ORDERED: D5W 1,000 ML IV PRN (08:00)
[2020-11-06] MEDS ORDERED: DEXTROSE 50%-WATER 50 ML DISP.SYRIN IVP PRN (08:00)
[2020-11-06] MEDS: NICOTINE 21 MG/24 HR PATCH.TD24 TD SCH ×2 (08:45→08:47)
[2020-11-06] MEDS: ASCORBIC ACID 500 MG TABLET PO SCH ×2 (08:45→21:01)
[2020-11-06] MEDS: MULTIVITAMINS TAB 1 TABLET PO SCH (08:45)
[2020-11-06] MEDS: VANCOMYCIN HCL 1,000 MG in NS 250 ML IV SCH ×2 (09:07→21:07)
--- NOTE | 2020-11-06 11:50 | NUR ---
DR. WOOD ROUNDS DR. WOOD TO SEE PATIENT, ORDERED MRI. TO BE DONE SUNDAY. ORDERS TO HOLD OFF ON SURGERY UNTIL MRI RESULTS. PATIENT EATING LUNCH. WILL MONITOR.
[2020-11-06 12:09] VITALS: BP_SYST 107
[2020-11-06 16:00] VITALS: BP_SYST 134
--- NOTE | 2020-11-06 17:20 | NUR ---
Blood sugar/ wound care/ pain Wound care done. Culture taken to lab. Cleaned and dressed. Patient ambulated to the bathroom with assistance. Blood sugar 237. 4 units of insulin given. Patient complaining of right foot pain. Percocet PO given. Will monitor.
--- NOTE | 2020-11-06 18:34 | NUR ---
Closing note Patient is sitting up in bed, alert and oriented x 4. On room air and tolerating well with no signs of shortness of breath. IV is patent, saline locked. Bed locked and in lowest position. Right foot wrapped and elevated. Call light within reach. No complaints of pain at this time. Will endorse to night nurse.
--- NOTE | 2020-11-06 19:50 | NUR ---
OPENING NOTE RECEIVED REPORT FROM DAY RN. PATIENT SITTING IN BED WITH RESPIRATIONS EVEN AND UNLABORED ON RA. NO SIGNS OF DISTRESS NOTED. RIGHT WRIST IV 20G CLEAN, DRY, AND INTACT. SALINE LOCKED. FLUSHES WELL. BED IN LOW AND LOCKED POSITION. CALL LIGHT WITHIN REACH. 2 RAILS UP. WILL CONTINUE TO MONITOR.
[2020-11-06 20:00] VITALS: BP_SYST 119
[2020-11-06] MEDS: ENOXAPARIN SODIUM 40 MG/0.4 ML SYRINGE SUBCUT SCH (21:05)
[2020-11-07] MEDS: PIPERACILLIN/TAZO 3.375/DEX-IS 50 ML IV SCH ×5 (00:20→23:30)
[2020-11-07] MEDS: OXYCODONE/ACETAMINOPHEN *10*mg/325 mg TABLET PO PRN ×3 (03:24→23:29)
[2020-11-07] MEDS: INSULIN REGULAR, HUMAN 100 UNITS/ML, 10 ML VIAL (humuLIN R) SUBCUT PRN ×3 (06:23→20:31)
[2020-11-07 06:41] LABS: BASOPHILS # (AUTO) 0.1 K/uL (0.0-0.2); BASOPHILS % (AUTO) 0.5 % (0.0-2.0); EOSINOPHILS # (AUTO) 0.2 K/uL (0.0-0.4); EOSINOPHILS % (AUTO) 1.2 % (0.0-4.0); HEMATOCRIT 34.6 % (36-54); HEMOGLOBIN 11.5 g/dL (14.0-18.0); LYMPHOCYTES # (AUTO) 1.9 K/uL (1.0-5.5); LYMPHOCYTES % (AUTO) 10.2 % (20.5-51.5); MEAN CORPUSCULAR HEMOGLOBIN 30 pg (27-31); MEAN CORPUSCULAR HGB CONC 33 % (32-36); MEAN CORPUSCULAR VOLUME 89 fL (79.0-98.0); NEUTROPHILS # (AUTO) 14.2 K/uL (1.8-7.7); PLATELET COUNT (AUTO) 237 K/uL (130-430); RED BLOOD CELL COUNT(AUTO) 3.88 MIL/uL (4.2-6.2); RED CELL DISTRIBUTION WIDTH 13.5 % (9.0-15.0); WHITE BLOOD COUNT (AUTO) 18.4 K/uL (4.8-10.8)
[2020-11-07 06:54] LABS: CALCIUM 8.6 mg/dL (8.4-11.0); CREATININE 0.79 mg/dL (0.55-1.30); POTASSIUM 4.1 mmol/L (3.5-5.1)
--- NOTE | 2020-11-07 07:00 | NUR ---
CLOSING NOTE PATIENT SLEEPING IN BED WITH RESPIRATIONS EVEN AND UNLABORED ON RA. NO SIGNS OF DISTRESS NOTED. PT CURRENTLY DENIES PAIN. RIGHT IV PATENT AND INTACT RUNNING ABX. NO SIGNS OF INFILTRATION NOTED. BED IN LOW AND LOCKED POSITION. ALL NEEDS MET. CALL LIGHT WITHIN REACH. WILL ENDORSE TO DAY RN .
--- NOTE | 2020-11-07 07:50 | NUR ---
OPENING NOTE RECEIVED REPORT FROM NIGHT NURSE. PATIENT IS ALERT AND ORIENTED X4. ON ROOM AIR AND TOLERATING WELL WITH NO SIGNS OF SHORTNESS OF BREATH NOTED. IV IS PATENT, SALINE LOCKED. BED LOCKED AND IN LOWEST POSITION. CALL LIGHT WITHIN REACH. SAFETY PRECAUTIONS IN PLACE. WILL CONTINUE TO MONITOR.
[2020-11-07 08:00] VITALS: BP_SYST 133
[2020-11-07] MEDS: ASCORBIC ACID 500 MG TABLET PO SCH ×2 (08:34→20:19)
[2020-11-07] MEDS: MULTIVITAMINS TAB 1 TABLET PO SCH (08:35)
[2020-11-07] MEDS: NICOTINE 21 MG/24 HR PATCH.TD24 TD SCH (08:35)
[2020-11-07] MEDS: VANCOMYCIN HCL 1,000 MG in NS 250 ML IV SCH (09:32)
[2020-11-07 10:47] LABS: NEUTROPHILS % (AUTO) 77.1 % (40.0-70.0)
[2020-11-07] MEDS ORDERED: NALOXONE HCL 0.4 MG/ML AMP (NARCAN) IVP PRN (11:00)
--- NOTE | 2020-11-07 11:20 | NUR ---
DR. NINA ALLEN MD TO SEE PATIENT. ORDERED DILAUDID 1 MG IVP PRN FOR SEVERE PAIN. ORDERS FOR SURGERY TOMORROW AFTER MRI IS DONE. PATIENT TO BE NPO AFTER MIDNIGHT. WILL CARRY OUT ORDERS.
[2020-11-07] MEDS: HYDROmorphone 1 MG/ML INJ. CARTRIDGE IVP PRN ×2 (11:55→21:05)
[2020-11-07] MEDS ORDERED: KETOROLAC TROMETHAMINE 15 MG VIAL IVP ONE (15:00)
--- NOTE | 2020-11-07 15:08 | NUR ---
DR. STEVEN FERGUSON MD TO SEE PATIENT. WILL FOLLOW UP ON NEW ORDERS. WOUND CARE DONE AND DRESSING CHANGED.
[2020-11-07 16:00] VITALS: BP_SYST 135
--- NOTE | 2020-11-07 17:35 | NUR ---
PAIN PATIENT COMPLAINING OF RIGHT FOOT PAIN. PEROCOCET PO GIVEN. BLOOD SUGAR WITHIN NORMAL LIMITS. NO INSULIN NEEDED. WILL MONITOR.
--- NOTE | 2020-11-07 18:23 | NUR ---
CLOSING NOTE PATIENT IS SITTING UP IN BED, ALERT AND ORIENTED X4. ON ROOM AIR AND TOLERATING WELL WITH NO SIGNS OF SHORTNESS OF BREATH NOTED. IV IS PATENT, SALINE LOCKED. BED LOCKED AND IN LOWEST POSITION. CALL LIGHT WITHIN REACH. SAFETY PRECAUTIONS IN PLACE. WILL ENDORSE TO NIGHT NURSE.
--- NOTE | 2020-11-07 19:50 | NUR ---
OPENING NOTE RECEIVED REPORT FROM DAY RN. PATIENT SITTING IN BED WITH RESPIRATIONS EVEN AND UNLABORED ON RA. NO SIGNS OF DISTRESS NOTED. PATIENT STATES HE GETS PAIN WHEN HE WALKS ON RIGHT FOOT OR IF HE MOVES IT WHILE IN BED. RIGHT WRIST IV 20G CLEAN, DRY AND INTACT. NO SIGNS OF INFILTRATION NOTED. SALINE LOCKED. FLUSHES WELL. PT EDUCATED ON BEING NPO AT MIDNIGHT FOR MRI AND POSSIBLE PROCEDURE TOMORROW, 11/08/20. PT VERBALIZED UNDERSTANDING. BED IN LOWEST AND LOCKED POSITION. CALL LIGHT WITHIN REACH. SAFETY PRECAUTIONS IN PLACE. WILL CONTINUE TO MONITOR.
[2020-11-07 20:00] VITALS: BP_SYST 123
[2020-11-07] MEDS: ENOXAPARIN SODIUM 40 MG/0.4 ML SYRINGE SUBCUT SCH (20:30)
[2020-11-07] MEDS: VANCOMYCIN HCL 1,250 MG in NS 250 ML IV SCH (20:35)
--- NOTE | 2020-11-07 23:29 | NUR ---
PAIN PT C/O PAIN TO RIGHT FOOT. STATES IT FEELS LIKE A BURNING. PRN PERCOCET ADMINISTERED PER MEDICATION ORDERS.
[2020-11-08] VITALS: BP_SYST 124
[2020-11-08] MEDS: HYDROmorphone 1 MG/ML INJ. CARTRIDGE IVP PRN ×5 (02:42→23:42)
[2020-11-08] MEDS: PIPERACILLIN/TAZO 3.375/DEX-IS 50 ML IV SCH ×4 (06:04→23:40)
[2020-11-08] MEDS: OXYCODONE/ACETAMINOPHEN *10*mg/325 mg TABLET PO PRN ×3 (06:05→20:27)
[2020-11-08] MEDS: INSULIN REGULAR, HUMAN 100 UNITS/ML, 10 ML VIAL (humuLIN R) SUBCUT PRN ×3 (06:14→20:34)
[2020-11-08 06:36] LABS: HEMATOCRIT 35.1 % (36-54); HEMOGLOBIN 11.6 g/dL (14.0-18.0); MEAN CORPUSCULAR HEMOGLOBIN 29 pg (27-31); MEAN CORPUSCULAR HGB CONC 33 % (32-36); MEAN CORPUSCULAR VOLUME 89 fL (79.0-98.0); PLATELET COUNT (AUTO) 254 K/uL (130-430); RED BLOOD CELL COUNT(AUTO) 3.96 MIL/uL (4.2-6.2); RED CELL DISTRIBUTION WIDTH 13.7 % (9.0-15.0); WHITE BLOOD COUNT (AUTO) 21.3 K/uL (4.8-10.8)
--- NOTE | 2020-11-08 06:48 | NUR ---
CLOSING NOTE PATIENT IN BED WITH RESPIRATIONS EVEN AND UNLABORED ON RA. NO SIGNS OF DISTRESS NOTED. PT C/O PAIN TO RIGHT FOOT. PRN MEDICATIONS ADMINISTERED. RIGHT WRIST IV PATENT AND INTACT RUNNING IV ABX. ALL NEEDS MET. BED IN LOWEST AND LOCKED POSITION. CALL LIGHT WITHIN REACH. SAFETY PRECAUTIONS IN PLACE. WILL ENDORSE TO DAY RN.
[2020-11-08 07:08] LABS: ALBUMIN 2.2 g/dL (3.4-4.8); CALCIUM 8.7 mg/dL (8.4-11.0); CREATININE 0.9 mg/dL (0.55-1.30); POTASSIUM 4.1 mmol/L (3.5-5.1); TOTAL BILIRUBIN 0.3 mg/dL (0.0-1.0)
--- NOTE | 2020-11-08 08:00 | NUR ---
Opening notes Received patient awake, lethargic. Alert to name and situation. No signs of distress at this time, no seizure activity noted. resp easy and unlabored. Consent for midline done over the phone with Aparna (mother), awaiting nurse for PICC line procedure. Bed to the lowest position and side rails up and locked with bed alarm on. call light within reached. On fall/aspiration/ seizure precaution. will continue to monitor patient.
--- NOTE | 2020-11-08 08:00 | NUR ---
ASSUMPTION OF CARE: RECEIVED PT A/A/OX4, DX: PAIN/DISCOMFORT, R/T RIGHT FOOT INFECTION, CELLULITIS, SCHEDULED FOR SURGICAL DEBRIDEMENT W/POSSIBLE AMPUTATION OF SMALL TOE, CONSENT SIGNED BY PT, AWARE OF RISK AND BENEFITS, VERBALIZES UNDERSTANDING, AFEBRILE, VSS, BREATH SOUNDS ARE CLEAR, BREATHING UNLABORED, SATURATING 96% ORA,IV SITE INTACT, PATENT, NO REDNESS OR SWELLING, NO S/S OF DISTRESS, ORIENTED TO UNIT, CALL LIGHT PLACED WITHIN REACH, WILL CONT' TO MONITOR ND ASSESS.
[2020-11-08 08:38] VITALS: BP_SYST 140
[2020-11-08] MEDS: NICOTINE 21 MG/24 HR PATCH.TD24 TD SCH (09:00)
--- NOTE | 2020-11-08 09:00 | NUR ---
NURSES NOTES: PT ASSISTED TO SHOWER ROOM TO TAKE SHOWER REQUESTED BY PT, TRANSPORTED VIA WHEELCHAIR, ACCOMPANIED BY CHARGE NURSE MURPHY [employer]IVE.
[2020-11-08] MEDS: VANCOMYCIN HCL 1,250 MG in NS 250 ML IV SCH (09:55)
[2020-11-08 10:07] LABS: BASOPHILS % (MANUAL) 0 % (0-2); EOSINOPHILS % (MANUAL) 1 % (0-7); LYMPHOCYTES % (MANUAL) 10 % (20-46); MONOCYTES % (MANUAL) 5 % (0-11)
[2020-11-08] MEDS ORDERED: *CUBICIN 6 MG/KG Q24H/PHARMACY XX PRN (11:30)
--- NOTE | 2020-11-08 11:30 | NUR ---
GLUCOSE MONITORING: BLOOD SUGAR [id number], NO COVERAGE REQUIRED, NPO SINCE MIDNIGHT , WILL CONT' TO MONITOR AND ASSESS.
[2020-11-08] MEDS: MICAFUNGIN SODIUM 100 MG in NS 100 ML IV SCH (12:00)
--- NOTE | 2020-11-08 12:00 | NUR ---
RADIOLOGY: PT OFF UNIT, VIA WHEELCHAIR IN STABLE CONDITION, TO RADIOLOGY FOR MRI LOWER EXTREMITY, ACCOMPANIED BY TECH.
[2020-11-08] MEDS: DAPTOmycin 500 MG in NS 50 ML IV SCH (13:46)
[2020-11-08] MEDS: ASCORBIC ACID 500 MG TABLET PO SCH ×2 (15:38→20:26)
[2020-11-08] MEDS: MULTIVITAMINS TAB 1 TABLET PO SCH (15:38)
[2020-11-08 16:00] VITALS: BP_SYST 135
--- NOTE | 2020-11-08 17:20 | NUR ---
GLUCOSE MONITORING: BLOOD SUGAR [id number], 2 UNITS REGULAR INSULIN GIVEN SQ, TOLERATED WELL, WILL CONT' TO MONITOR AND ASSESS.
--- NOTE | 2020-11-08 19:45 | NUR ---
OPENING NOTE PATIENT SITTING IN BED WITH RESPIRATIONS EVEN AND UNLABORED ON RA. LEFT FA IV CLEAN DRY AND INTACT. NO SIGNS OF INFILTRATION NOTED. BED IN LOW AND LOCKED POSITION. SAFETY PRECAUTIONS IN PLACE. CALL LIGHT WITHIN REACH. WILL CONTINUE TO MONITOR.
[2020-11-08 20:00] VITALS: BP_SYST 125
--- NOTE | 2020-11-08 20:24 | NUR ---
PAGED DR MITCHELL. REGARDING ADMINISTRATION OF LOVENOX BEFORE I&D ON 11/09/20. PER , PT WILL CONTINUE LOVENOX. TO/RB VERIFIED.
[2020-11-08] MEDS: ENOXAPARIN SODIUM 40 MG/0.4 ML SYRINGE SUBCUT SCH (20:33)
[2020-11-09] VITALS: BP_SYST 111
--- NOTE | 2020-11-09 01:00 | NUR ---
RN Isaias Pt is sleeping. VS stable. Will continue to monitor Addendum: 11/10/20 at 0566 by Cyndi Finch RN Wrong date
[2020-11-09] MEDS: HYDROmorphone 1 MG/ML INJ. CARTRIDGE IVP PRN ×4 (04:16→16:28)
[2020-11-09] MEDS: PIPERACILLIN/TAZO 3.375/DEX-IS 50 ML IV SCH ×3 (06:10→17:05)
[2020-11-09] MEDS: INSULIN REGULAR, HUMAN 100 UNITS/ML, 10 ML VIAL (humuLIN R) SUBCUT PRN ×3 (06:16→20:55)
--- NOTE | 2020-11-09 07:02 | NUR ---
Nutrition Update Ranulfo Scale 18 noted. Pt admitted for Right sided Infection of foot Diet: [facility] BMI: 25.1 kg/m2 RD to follow per nutrition care standards.
--- NOTE | 2020-11-09 07:49 | NUR ---
CLOSING NOTE PATIENT LAYING IN BED WITH RESPIRATIONS EVEN AND UNLABORED ON RA. NO SIGNS OF DISTRESS NOTED. LEFT FA IV CLEAN DRY AND INTACT. NO SIGNS OF INFILTRATION NOTED. ALL NEEDS MET THROUGHOUT THE NIGHT. BED IN LOW AND LOCKED POSITION. SAFETY PRECAUTIONS IN PLACE. CALL LIGHT WITHIN REACH. PATIENT NPO FOR MRI AND POSSIBLE I&D. WILL ENDORSE TO DAY RN.
[2020-11-09 08:00] VITALS: BP_SYST 124
[2020-11-09] MEDS: ASCORBIC ACID 500 MG TABLET PO SCH ×2 (08:06→20:43)
[2020-11-09] MEDS: MULTIVITAMINS TAB 1 TABLET PO SCH (08:06)
[2020-11-09] MEDS: NICOTINE 21 MG/24 HR PATCH.TD24 TD SCH (08:07)
[2020-11-09] MEDS ORDERED: GADOTERATE MEGLUMINE 7.5 MMOL/15 ML VIAL IV ONE (10:51)
--- NOTE | 2020-11-09 11:05 | NUR ---
Note Pt off the floor via wheelchair to MRI at 1010am and returned to floor at 1105am.
[2020-11-09] MEDS: MICAFUNGIN SODIUM 100 MG in NS 100 ML IV SCH (11:30)
[2020-11-09 11:41] LABS: BASOPHILS # (AUTO) 0.1 K/uL (0.0-0.2); BASOPHILS % (AUTO) 0.5 % (0.0-2.0); EOSINOPHILS # (AUTO) 0.2 K/uL (0.0-0.4); EOSINOPHILS % (AUTO) 0.7 % (0.0-4.0); HEMATOCRIT 35.6 % (36-54); HEMOGLOBIN 11.8 g/dL (14.0-18.0); LYMPHOCYTES # (AUTO) 1.7 K/uL (1.0-5.5); MEAN CORPUSCULAR HEMOGLOBIN 30 pg (27-31); MEAN CORPUSCULAR HGB CONC 33 % (32-36); MEAN CORPUSCULAR VOLUME 89 fL (79.0-98.0); MONOCYTES # (AUTO) 2.1 K/uL (0.0-1.0); MONOCYTES % (AUTO) 8.6 % (1.7-9.3); NEUTROPHILS # (AUTO) 20.6 K/uL (1.8-7.7); PLATELET COUNT (AUTO) 273 K/uL (130-430); RED CELL DISTRIBUTION WIDTH 13.7 % (9.0-15.0); WHITE BLOOD COUNT (AUTO) 24.7 K/uL (4.8-10.8)
[2020-11-09 11:48] LABS: NEUTROPHILS % (AUTO) 83.2 % (40.0-70.0)
[2020-11-09 12:00] VITALS: BP_SYST 131
[2020-11-09 12:27] LABS: ERYTHROCYTE SEDIMENTATION RATE 94 MM/HR (0-15)
[2020-11-09] MEDS: DAPTOmycin 500 MG in NS 50 ML IV SCH (13:30)
[2020-11-09 16:00] VITALS: BP_SYST 134
--- NOTE | 2020-11-09 16:20 | NUR ---
Note XI=458.No Insulin given.Pt NPO and is going to surgery at 1730.
[2020-11-09] MEDS ORDERED: fentaNYL CITRATE/PF 100 MCG/2 ML AMP IVP ONE (18:29)
[2020-11-09] MEDS ORDERED: NS 1000 ML IV.SOLN IV ONE (18:29)
[2020-11-09] MEDS ORDERED: METOCLOPRAMIDE HCL 10 MG/2 ML VIAL IVP ONE (18:29)
[2020-11-09] MEDS ORDERED: LIDOCAINE 1% 10 MG/ML, 20 ML MDV INJ ONE (18:29)
[2020-11-09] MEDS ORDERED: PROPOFOL 200MG/ 20ML VIAL (DIPRIVAN) IV ONE (18:29)
[2020-11-09] MEDS ORDERED: MIDAZOLAM HCL 5 MG/5 ML VIAL IVP ONE (18:29)
[2020-11-09] MEDS ORDERED: SEVOFLURANE 15 MIN GAS INH ONE (18:29)
[2020-11-09] MEDS ORDERED: KETOROLAC TROMETHAMINE 30 MG VIAL IVP ONE (18:29)
[2020-11-09] MEDS ORDERED: DEXAMETHASONE SOD PHOSPHATE 4 MG/ML VIAL IVP ONE (18:29)
[2020-11-09] MEDS ORDERED: HYDROmorphone 1 MG/ML INJ. CARTRIDGE IVP PRN (18:45)
[2020-11-09] MEDS ORDERED: LR 1,000 ML IV SCH (18:45)
[2020-11-09] MEDS ORDERED: HYDROmorphone 2 MG/ML VIAL IVP PRN ×2 (18:45)
[2020-11-09] MEDS ORDERED: MEPERIDINE HCL/PF 25 MG/ML DISP.SYRIN IVP PRN (18:45)
--- NOTE | 2020-11-09 18:50 | NUR ---
Note Pt has been resting in bed all shift. Pt receives his Dilaudid 1mg IVP every 4'. Pt ambulates to restroom throughout the shift. Right foot dressing CDI all shift. Pt was checked on q1' and PRN all shift for needs and care. Pt's bed in low position. Pt's IV in left forearm intact and patent all shift. Call light within reach. Pt off the floor via bed at 1830 to OR for I&D of right foot wound.
[2020-11-09] MEDS ORDERED: POLYMYXIN 500,000/BACIT.10,000 UNITS in NS IRR 1 L IR ONE (19:02)
[2020-11-09] MEDS ORDERED: ONDANSETRON HCL 4 MG/2 ML VIAL IVP PRN (19:30)
[2020-11-09] MEDS: D5/0.45 NS 1,000 ML IV SCH (19:30)
[2020-11-09] MEDS ORDERED: NALOXONE HCL 0.4 MG/ML AMP (NARCAN) IVP PRN (19:30)
[2020-11-09 20:00] VITALS: BP_SYST 117
[2020-11-09] MEDS: ENOXAPARIN SODIUM 40 MG/0.4 ML SYRINGE SUBCUT SCH (20:48)
[2020-11-09] MEDS ORDERED: HYDROcodone/ACETAMIN 5-325 MG TAB (NORCO/ VICODIN) PO PRN (21:00)
--- NOTE | 2020-11-09 21:00 | NUR ---
BACK FROM SURGERY VS stable. Breathing is even and unlabored. IV site is intact and patent. Will continue to monitor.
[2020-11-10] VITALS: BP_SYST 109
[2020-11-10] MEDS: PIPERACILLIN/TAZO 3.375/DEX-IS 50 ML IV SCH ×4 (00:35→17:57)
--- NOTE | 2020-11-10 01:00 | NUR ---
RN Rounds Pt is sleeping. VS stable. Surgical dressing is intact. Will continue to monitor.
[2020-11-10] MEDS: D5/0.45 NS 1,000 ML IV SCH ×2 (05:30→15:48)
[2020-11-10] MEDS: INSULIN REGULAR, HUMAN 100 UNITS/ML, 10 ML VIAL (humuLIN R) SUBCUT PRN ×4 (06:21→22:25)
--- NOTE | 2020-11-10 06:27 | NUR ---
SPOKE TO DR. MITCHELL REGARDING PT'S HIGH BLOOD SUGAR OF 422. INFORMED MD THAT 12 UNITS OF INSULIN WAS GIVEN ORDERED. NO NEW ORDERS GIVEN. WILL MONITOR.
--- NOTE | 2020-11-10 06:52 | NUR ---
Closing note Pt is awake lying in bed. No complaints of pain at this time. Surgical dressing is dry and intact. IV site is intact and patent. Fall and safety precautions are in place with bed in lowest position and call light within reach. Will continue to monitor until endorsed to day shift RN.
[2020-11-10 06:58] LABS: BASOPHILS # (AUTO) 0.1 K/uL (0.0-0.2); BASOPHILS % (AUTO) 0.3 % (0.0-2.0); HEMATOCRIT 38.5 % (36-54); HEMOGLOBIN 12.7 g/dL (14.0-18.0); LYMPHOCYTES # (AUTO) 1.2 K/uL (1.0-5.5); LYMPHOCYTES % (AUTO) 4.1 % (20.5-51.5); MEAN CORPUSCULAR HEMOGLOBIN 29 pg (27-31); MEAN CORPUSCULAR HGB CONC 33 % (32-36); MEAN CORPUSCULAR VOLUME 89 fL (79.0-98.0); MONOCYTES # (AUTO) 1.4 K/uL (0.0-1.0); NEUTROPHILS # (AUTO) 25.6 K/uL (1.8-7.7); NEUTROPHILS % (AUTO) 90.6 % (40.0-70.0); PLATELET COUNT (AUTO) 299 K/uL (130-430); RED BLOOD CELL COUNT(AUTO) 4.32 MIL/uL (4.2-6.2); RED CELL DISTRIBUTION WIDTH 13.7 % (9.0-15.0); WHITE BLOOD COUNT (AUTO) 28.3 K/uL (4.8-10.8)
--- NOTE | 2020-11-10 07:45 | NUR ---
Opening Notes Patient is awake, alert and oriented x4. No resp distress noted. Breathing is even and unlabored. Pt remains on RA at this time. Pt reports intermittent cough with phelgm, brown in color, thick. Pt denies any pain at this time. Neurochecks performed on right foot. Right foot is wrapped in gauze, Dr. Tavares to do initial dressing. Patient is able to wiggle toes, minimal swelling, warm to touch, normal tone, denies any pain. IV site wrist 22 gauge intact at this time. LR @ 100 cc/hr, infusing well at this time. Pt is ambulatory, steady gait. All needs met at this time. Safety and fall precautions in place. Bed in lowest position, locked. Will continue to monitor.
[2020-11-10 07:55] LABS: ALBUMIN 2.2 g/dL (3.4-4.8); CALCIUM 8.5 mg/dL (8.4-11.0); CREATININE 1.28 mg/dL (0.55-1.30); POTASSIUM 4.4 mmol/L (3.5-5.1); TOTAL BILIRUBIN 0.4 mg/dL (0.0-1.0)
[2020-11-10 08:00] VITALS: BP_SYST 119
[2020-11-10] MEDS: NICOTINE 21 MG/24 HR PATCH.TD24 TD SCH (09:00)
[2020-11-10] MEDS: ASCORBIC ACID 500 MG TABLET PO SCH ×2 (09:11→21:09)
[2020-11-10] MEDS: MULTIVITAMINS TAB 1 TABLET PO SCH (09:11)
--- NOTE | 2020-11-10 10:36 | NUR ---
Dietitian Recommendations *Recommend: continue CCHO diet, add Hira BID and double portions of protein. Please see Nutritional Assessment for details. ELISE HERNANDEZ
--- NOTE | 2020-11-10 12:00 | NUR ---
Notes Patient is awake, alert and oriented x4, watching TV on his iPAD. No resp distress noted. Breathing is even and unlabored. Pt reports 5/10 pain on right foot, does not want pain meds at this time. Neurochecks performed: WNL. Educated patient to ask for pain medications when needed. Pt aware and agreed. Will continue to monitor.
[2020-11-10 12:18] VITALS: BP_SYST 131
[2020-11-10] MEDS: DAPTOmycin 500 MG in NS 50 ML IV SCH (13:02)
[2020-11-10 16:14] VITALS: BP_SYST 126
--- NOTE | 2020-11-10 16:35 | NUR ---
Patient is being seen and examined by DR PETERSNO Addendum: 11/10/20 at 1705 by Amaya Caballero RN 1705: Dr. Tavares s/w Sandy (WOUND CARE NURSE) about plan of care. Please note Dr. Tavares notes in the chart (POWER IS DOWN at this time.)
--- NOTE | 2020-11-10 17:00 | NUR ---
WOUND EVALUATION: Wound Consult received from Dr. Rios. Thank you, Dr. Rios, for the consult. Per Dr. Rios, patient may need additional amputation. Patient received in a [place] Bed with a foam mattress, awake, alert, and oriented. Patient is able to turn independently. Ranulfo Score is a 19. Patient is post-op day 1 with wide debridement of right forefoot, excision of the right fifth metatarsal and digit and irrigation lavage. Post operative diagnosis: Necrosis of 5th digit going towards 4th digit and forefoot. Past Medical History:diabetes mellitus, chronic smoking, peripheral vascular disease of lower extremities, right diabetic foot ulcer. Recent Labs: WBC 28.3, RBC 4.32, Hgb 12.7, Hct 38.5, K 4.4, BUN 18, Alkaline Phosphatase 242, Albumin 2.2. Intrinsic factors that delay wound healing: history of smoking, diabetes, peripheral vascular disease. Extrinsic factors that delay wound healing: Decreased mobility. Microbiology: Klebsiella in wound abscess. Wound Assessment: 1. Right Foot: Necrosis going towards 4th digit and forefoot. Noted with dave and xeroform dressing. Tissue 100% maroon with stitches present, 4th digit with purple discoloration. Large amount of red drainage noted. Stitches present. Periwound intact. Wound measures 11 cm x 8 cm. Recommend: Cleanse wound with normal saline. Pat dry. Apply venelex to wound bed. [place] gangrenous areas with iodine. Cover with foam dressing. Wrap with krelex elvie wrap. Perform wound care daily, and as needed for dressing soiling or dislodgement. Also recommend: Reposition patient every 2 hours with pillow support and off-load pressure areas with pillows for pressure re-distribution. Offload, elevate and float bilateral heels with pillows. Perform skin care and monitor skin integrity Q shift. Use moisture barrier cream on buttocks and other moisture susceptible areas QID and as needed for soiling. Place patient on a low air-loss mattress.
--- NOTE | 2020-11-10 17:15 | NUR ---
Patient is being seen and examined by MARIA T RAYO (ICU) for woundcare.
--- NOTE | 2020-11-10 17:30 | NUR ---
Patient is being seen and examined by DR CABA and DR. MITCHELL
--- NOTE | 2020-11-10 19:14 | NUR ---
Closing Notes Patient is awake, alert and oriented x4. No resp distress noted. Breathing is even and unlabored. Pt denies any pain at this time. IV site on left wrist 22 gauge intact at this time. D5 1/2 NS @ 100 cc/hr, infusing well at this time. Pt remains on bedrest, able to ambulate to the bathroom independently. Supervision may be needed. All needs met at this time. Safety and fall precautions in place. Bed in lowest position, locked. Will continue to monitor.
[2020-11-10 20:10] VITALS: BP_SYST 143
--- NOTE | 2020-11-10 20:10 | NUR ---
Opening notes Pt AAOx4, VSS, afebrile, no c/o pain. R. foot dressing C/D/I, maintained elevated. IVF infusing at ordered rate L. wrist 22G no s/s infiltration noted. Call light within reach. Bed low, locked, siderails up x2. To monitor.
[2020-11-10] MEDS: ENOXAPARIN SODIUM 40 MG/0.4 ML SYRINGE SUBCUT SCH (21:11)
[2020-11-11] MEDS: PIPERACILLIN/TAZO 3.375/DEX-IS 50 ML IV SCH ×5 (00:11→23:01)
--- NOTE | 2020-11-11 00:11 | NUR ---
Rounds Pt awake, watching on his Ipad, no s/s distress noted. IVF/abx infusing at ordered rate L. wrist 22G no s/s infiltration. Call light within reach. Safety precaution maintained. To monitor.
--- NOTE | 2020-11-11 00:49 | NUR ---
Consultation Paged Reason for Consultation: Right Foot Amputation Was consult called: Y Person who was notified: Lana Consulting Physician: Roberto Lima Ordering Physician: Dr. Rios
[2020-11-11 01:21] VITALS: BP_SYST 142
[2020-11-11] MEDS: D5/0.45 NS 1,000 ML IV SCH ×3 (02:52→21:30)
[2020-11-11] MEDS: HYDROmorphone 1 MG/ML INJ. CARTRIDGE IVP PRN ×3 (02:54→20:31)
--- NOTE | 2020-11-11 02:54 | NUR ---
Pain Pt c/o severe throbbing pain R. foot, medicated w/ Dilaudid 1mg IVP as needed. Call light within reach. Bed low, locked, siderails up x2. To monitor.
--- NOTE | 2020-11-11 05:26 | NUR ---
Consultation Paged Reason for Consultation: Right Foot Amputation Was consult called: Y Person who was notified: Dr. Rios as per ER notes Consulting Physician: Dr. Rios Ordering Physician: Dr. Rios
--- NOTE | 2020-11-11 06:54 | NUR ---
Closing notes Pt AAOx4, no c/o pain. BS checked 270, 6 units Reg insulin administered per protocol. R. foot dressing C/D/I, maintained elevated. IVF infusing at ordered rate L. wrist 22G no s/s infiltration noted. Call light within reach. Bed low, locked, siderails up x2. To endorse to AM nurse.
[2020-11-11] MEDS: INSULIN REGULAR, HUMAN 100 UNITS/ML, 10 ML VIAL (humuLIN R) SUBCUT PRN ×4 (06:56→21:08)
--- NOTE | 2020-11-11 08:12 | NUR ---
initial notes rec patient awake laert with ivf infusing well . resp easy and unlabored. no sob noted. bed to the lowest position and side rails up and locked. call light within reached. dressing on the rt foot intact. denies pain.
[2020-11-11 08:15] VITALS: BP_SYST 141
[2020-11-11] MEDS: MULTIVITAMINS TAB 1 TABLET PO SCH (09:26)
[2020-11-11] MEDS: ASCORBIC ACID 500 MG TABLET PO SCH ×2 (09:26→20:29)
[2020-11-11] MEDS: NICOTINE 21 MG/24 HR PATCH.TD24 TD SCH (09:26)
[2020-11-11 11:43] LABS: BASOPHILS # (AUTO) 0.1 K/uL (0.0-0.2); BASOPHILS % (AUTO) 0.7 % (0.0-2.0); EOSINOPHILS # (AUTO) 0.3 K/uL (0.0-0.4); EOSINOPHILS % (AUTO) 1.7 % (0.0-4.0); HEMOGLOBIN 11.8 g/dL (14.0-18.0); LYMPHOCYTES % (AUTO) 11.1 % (20.5-51.5); MEAN CORPUSCULAR HEMOGLOBIN 29 pg (27-31); MEAN CORPUSCULAR HGB CONC 33 % (32-36); MEAN CORPUSCULAR VOLUME 89 fL (79.0-98.0); MONOCYTES # (AUTO) 1.1 K/uL (0.0-1.0); MONOCYTES % (AUTO) 6.3 % (1.7-9.3); NEUTROPHILS # (AUTO) 14.6 K/uL (1.8-7.7); NEUTROPHILS % (AUTO) 80.2 % (40.0-70.0); PLATELET COUNT (AUTO) 289 K/uL (130-430); RED BLOOD CELL COUNT(AUTO) 4.04 MIL/uL (4.2-6.2); RED CELL DISTRIBUTION WIDTH 13.8 % (9.0-15.0); WHITE BLOOD COUNT (AUTO) 18.1 K/uL (4.8-10.8)
[2020-11-11 12:22] VITALS: BP_SYST 136
[2020-11-11] MEDS: DAPTOmycin 500 MG in NS 50 ML IV SCH (13:12)
[2020-11-11 16:23] VITALS: BP_SYST 130
--- NOTE | 2020-11-11 18:00 | NUR ---
closingnotes no hypo hyperglycemic reaction noted. bed to the lowest position and side rails up and locked. call light within reached and ambulates to the br with steady gait.
[2020-11-11 20:00] VITALS: BP_SYST 120
--- NOTE | 2020-11-11 20:30 | NUR ---
Opening notes Pt AAOx4, resting in bed, no s/s distress noted. Pt ambulates to bathroom, steady gait. Pt medicated with Dilaudid IVP for c/o severe throbbing R. foot pain. IVF infusing at ordered rate L. wrist 22G no s/s infiltration. R. foot dressing C/D/I maintained floated on pillow. Call light within reach. To monitor.
[2020-11-11] MEDS: ENOXAPARIN SODIUM 40 MG/0.4 ML SYRINGE SUBCUT SCH (21:11)
[2020-11-11] MEDS: BALSAM PERU/CASTOR OIL 60 GM OINT...G. TP SCH (22:33)
--- NOTE | 2020-11-11 22:40 | NUR ---
Wound care Dressing changed to R. foot per director private recommedations. Necrotic tissue, moderate amount of serous drainage and foul odor noted. Pt tolerated well.
[2020-11-11] MEDS: OXYCODONE/ACETAMINOPHEN 5-325 TABLET PO PRN (23:00)
[2020-11-12 00:44] VITALS: BP_SYST 136
[2020-11-12] MEDS: PIPERACILLIN/TAZO 3.375/DEX-IS 50 ML IV SCH ×3 (06:01→17:33)
[2020-11-12] MEDS: INSULIN REGULAR, HUMAN 100 UNITS/ML, 10 ML VIAL (humuLIN R) SUBCUT PRN ×4 (06:09→22:14)
[2020-11-12 08:00] VITALS: BP_SYST 127
--- NOTE | 2020-11-12 08:00 | NUR ---
OPENING NOTES AWAKE, ALERT AND ORIENTED. NO SHORTNESS OF BREATH ON ROOM AIR. COMPLAINS OF 7/10 PAIN. WILL MEDICATE. IV INFUSING WELL. DRESSING INTACT ON RIGHT FOOT. FALL AND SAFETY CHECKS IN PLACE. CALL LIGHT WITHIN REACH. WILL CONTINUE TO MONITOR.
[2020-11-12] MEDS: ASCORBIC ACID 500 MG TABLET PO SCH ×2 (08:44→22:12)
[2020-11-12] MEDS: MULTIVITAMINS TAB 1 TABLET PO SCH (08:44)
[2020-11-12] MEDS: D5/0.45 NS 1,000 ML IV SCH ×2 (08:46→20:21)
[2020-11-12] MEDS: NICOTINE 21 MG/24 HR PATCH.TD24 TD SCH (08:46)
[2020-11-12] MEDS: HYDROmorphone 1 MG/ML INJ. CARTRIDGE IVP PRN ×2 (08:46→18:46)
--- NOTE | 2020-11-12 11:50 | NUR ---
PICC LINE INSERTED BY PICC LINE NURSETIFFANY ON LEFT UPPER ARM. INTACT AND PATENT.
--- NOTE | 2020-11-12 11:53 | NUR ---
MADE A FOLLOW UP CALL TO DR HEATH FOR R FOOT AMPUTATION CONSULT. SPOKE TO TALHA.
[2020-11-12] MEDS: DAPTOmycin 500 MG in NS 50 ML IV SCH (13:11)
--- NOTE | 2020-11-12 13:30 | NUR ---
MD ROUNDS; WOUND CARE SEEN BY DR. HEATH; EXPLAINED PLAN OF SURGERY TO THE PATIENT. WOUND CARE DONE. PATIENT TOLERATED PROCEDURE WELL.
[2020-11-12 16:00] VITALS: BP_SYST 131
[2020-11-12] MEDS: OXYCODONE/ACETAMINOPHEN 5-325 TABLET PO PRN (16:01)
--- NOTE | 2020-11-12 16:03 | NUR ---
PAIN COMPLAINED OF 6/10 PAIN ON RIGHT FOOT. ELEVATED FOOT. MEDICATED. WILL MONITOR.
--- NOTE | 2020-11-12 18:25 | NUR ---
SIGNED CONSENT PATIENT SIGNED CONSENT FOR TOMORROW'S PROCEDURE; RIGHT FOOT DEBRIDEMENT; POSSIBLE RIGHT FOOT CHARCOT AMPUTATION.
--- NOTE | 2020-11-12 18:51 | NUR ---
CLOSING NOTES RESTING. COMPLAINED OF 8/10 RIGHT FOOT PAIN. MEDICATED. NO SHORTNESS OF BREATH. ALL NEEDS MET. CALL LIGHT WITHIN REACH. WILL ENDORSE TO NIGHT NURSE.
--- NOTE | 2020-11-12 19:40 | NUR ---
initial notes: pt is awake, alert, oriented x 4. no pain, not distress, stable. ivf infusing well to right ua pic line double lumen- dressing dry and intact.pt has wound to right foot - dressing dry and intact. ambulatory with steady gait, BRP. explain plan of care to pt. pt verbalized understanding. needs attended call light in reach. side rails up x 3. will follow up.
[2020-11-12 20:18] VITALS: BP_SYST 116
[2020-11-13] VITALS: BP_SYST 135
--- NOTE | 2020-11-13 00:15 | NUR ---
pt is resting, wakes up complain of pain. vital sign stable, explain mediation side effects. needs attended call light in reach. will follow- up.
[2020-11-13] MEDS: HYDROmorphone 1 MG/ML INJ. CARTRIDGE IVP PRN ×4 (00:31→19:56)
--- NOTE | 2020-11-13 03:00 | NUR ---
sleeping, no pain, not distress, no sob, stable. ivf infusing well./ melquiades light with the pt.
[2020-11-13] MEDS: D5/0.45 NS 1,000 ML IV SCH ×2 (04:25→13:42)
[2020-11-13] MEDS: INSULIN REGULAR, HUMAN 100 UNITS/ML, 10 ML VIAL (humuLIN R) SUBCUT PRN ×3 (06:29→21:23)
[2020-11-13 06:53] LABS: CALCIUM 8.7 mg/dL (8.4-11.0); CREATININE 0.64 mg/dL (0.55-1.30)
--- NOTE | 2020-11-13 06:53 | NUR ---
closing: pt is awake, alert. complain of pain. not distress. stable, ivf infusing well. needs attended the whole shift.chg given. npo. safety precaution in place. will give sbar reporting to am rn.
[2020-11-13 07:03] LABS: BASOPHILS # (AUTO) 0.1 K/uL (0.0-0.2); BASOPHILS % (AUTO) 0.7 % (0.0-2.0); EOSINOPHILS # (AUTO) 0.4 K/uL (0.0-0.4); EOSINOPHILS % (AUTO) 2.3 % (0.0-4.0); HEMATOCRIT 35.5 % (36-54); HEMOGLOBIN 11.7 g/dL (14.0-18.0); LYMPHOCYTES # (AUTO) 2.1 K/uL (1.0-5.5); LYMPHOCYTES % (AUTO) 12.3 % (20.5-51.5); MEAN CORPUSCULAR HEMOGLOBIN 29 pg (27-31); MEAN CORPUSCULAR HGB CONC 33 % (32-36); MEAN CORPUSCULAR VOLUME 89 fL (79.0-98.0); MONOCYTES # (AUTO) 1.1 K/uL (0.0-1.0); MONOCYTES % (AUTO) 6.6 % (1.7-9.3); NEUTROPHILS # (AUTO) 13.2 K/uL (1.8-7.7); NEUTROPHILS % (AUTO) 78.1 % (40.0-70.0); PLATELET COUNT (AUTO) 319 K/uL (130-430); RED CELL DISTRIBUTION WIDTH 13.8 % (9.0-15.0); WHITE BLOOD COUNT (AUTO) 16.9 K/uL (4.8-10.8)
--- NOTE | 2020-11-13 07:15 | NUR ---
Opening note Patient is being taken to OR, in stable condition, IV is patent no signs and symptoms of infiltration. Will refer to MD notes for updates.
[2020-11-13] MEDS: MULTIVITAMINS TAB 1 TABLET PO SCH (07:46)
[2020-11-13] MEDS: ASCORBIC ACID 500 MG TABLET PO SCH ×2 (07:47→21:16)
[2020-11-13] MEDS: NICOTINE 21 MG/24 HR PATCH.TD24 TD SCH (07:47)
[2020-11-13] MEDS: BALSAM PERU/CASTOR OIL 60 GM OINT...G. TP SCH (07:47)
[2020-11-13] MEDS ORDERED: NACL 0.9% 1,000 ML IV SCH (09:30)
[2020-11-13] MEDS ORDERED: NALOXONE HCL 0.4 MG/ML AMP (NARCAN) IVP PRN (09:30)
[2020-11-13] MEDS ORDERED: HYDROmorphone 2 MG/ML VIAL IVP PRN ×2 (09:30)
[2020-11-13] MEDS ORDERED: ePHEDrine sulfate 50 MG/ML VIAL IVP PRN (09:30)
[2020-11-13] MEDS ORDERED: MEPERIDINE HCL/PF 25 MG/ML DISP.SYRIN IVP PRN (09:30)
[2020-11-13] MEDS ORDERED: MIDAZOLAM HCL 5 MG/5 ML VIAL IVP PRN (09:30)
[2020-11-13] MEDS ORDERED: HYDROmorphone 1 MG/ML INJ. CARTRIDGE IVP PRN (09:30)
[2020-11-13] MEDS ORDERED: POLYMYXIN 500,000/BACIT.10,000 UNITS in NS IRR 1 L IR ONE (10:29)
[2020-11-13] MEDS ORDERED: HYDROmorphone 2 MG/ML VIAL ONE ×2 (11:41→12:04)
[2020-11-13 12:40] VITALS: BP_SYST 113
--- NOTE | 2020-11-13 12:40 | NUR ---
RN note PAtiet si back form surgery, in stable condition, A&Ox4. No complaint of pain or discomfort. Will continue to monitor.
--- NOTE | 2020-11-13 12:45 | NUR ---
RN note PT is in with patient, able to ambulate with walker, however can not bare weight on right foot
[2020-11-13] MEDS: DAPTOmycin 500 MG in NS 50 ML IV SCH (13:22)
[2020-11-13 17:14] VITALS: BP_SYST 125
--- NOTE | 2020-11-13 18:32 | NUR ---
Closing note Patient is resting in bed A&4 no complaint however does experiencing ache robbing in right foot. IV is infusing, no signs or symptoms of respiratory distress. All needs were met. Bed is in lowest position call light within reach, fall and aspiration precautions are in place. Will endorse report to manager lan.
--- NOTE | 2020-11-13 19:35 | NUR ---
initial notes: pt is awake, alert, oriented x 4. complain of pain, not distress, stable. ivf infusing well to right ua picc line double lumen- dressing dry and intact.pt has wound to right foot - dressing dry and intact s/p right foot toes amputation. bedrest. explain plan of care to pt. pt verbalized understanding. needs attended call light in reach. side rails up x 3. will follow u
[2020-11-13 19:50] VITALS: BP_SYST 113
[2020-11-14] VITALS: BP_SYST 117
[2020-11-14] MEDS: D5/0.45 NS 1,000 ML IV SCH ×2 (00:34→09:34)
[2020-11-14] MEDS: HYDROmorphone 1 MG/ML INJ. CARTRIDGE IVP PRN ×7 (00:41→23:37)
--- NOTE | 2020-11-14 00:55 | NUR ---
pt still awake, alert, watching movie, complain of pain, not distress, stable vital sign, needs attended, call light in reach. will follow-up.
--- NOTE | 2020-11-14 04:47 | NUR ---
pt call for pain medication, stable. educate about pain medication side effects. verbalized understanding. safety precaution in place. will follow-up.
[2020-11-14] MEDS: INSULIN REGULAR, HUMAN 100 UNITS/ML, 10 ML VIAL (humuLIN R) SUBCUT PRN ×4 (06:35→20:28)
[2020-11-14] MEDS: OXYCODONE/ACETAMINOPHEN 5-325 TABLET PO PRN ×4 (06:42→22:14)
--- NOTE | 2020-11-14 07:00 | NUR ---
closing: pt is awake, alert, watching tv. complain of pain. not distress. stable, ivf infusing well. needs attended the whole shift. safety precaution in place. will give sbar reporting to am rn.
[2020-11-14 08:00] VITALS: BP_SYST 124
[2020-11-14 08:28] LABS: BASOPHILS # (AUTO) 0.3 K/uL (0.0-0.2); BASOPHILS % (AUTO) 1.2 % (0.0-2.0); EOSINOPHILS # (AUTO) 0.4 K/uL (0.0-0.4); EOSINOPHILS % (AUTO) 1.6 % (0.0-4.0); HEMATOCRIT 33.9 % (36-54); HEMOGLOBIN 11.1 g/dL (14.0-18.0); LYMPHOCYTES # (AUTO) 2.9 K/uL (1.0-5.5); LYMPHOCYTES % (AUTO) 12.7 % (20.5-51.5); MEAN CORPUSCULAR HEMOGLOBIN 29 pg (27-31); MEAN CORPUSCULAR HGB CONC 33 % (32-36); MEAN CORPUSCULAR VOLUME 89 fL (79.0-98.0); MONOCYTES # (AUTO) 1.4 K/uL (0.0-1.0); MONOCYTES % (AUTO) 6.2 % (1.7-9.3); NEUTROPHILS # (AUTO) 17.8 K/uL (1.8-7.7); NEUTROPHILS % (AUTO) 78.3 % (40.0-70.0); PLATELET COUNT (AUTO) 358 K/uL (130-430); RED BLOOD CELL COUNT(AUTO) 3.79 MIL/uL (4.2-6.2); RED CELL DISTRIBUTION WIDTH 13.7 % (9.0-15.0)
[2020-11-14] MEDS: MULTIVITAMINS TAB 1 TABLET PO SCH (08:34)
[2020-11-14] MEDS: ASCORBIC ACID 500 MG TABLET PO SCH ×2 (08:34→20:24)
[2020-11-14] MEDS: NICOTINE 21 MG/24 HR PATCH.TD24 TD SCH (08:34)
[2020-11-14] MEDS: ENOXAPARIN SODIUM 40 MG/0.4 ML SYRINGE SUBCUT SCH (08:40)
[2020-11-14] MEDS: BALSAM PERU/CASTOR OIL 60 GM OINT...G. TP SCH (08:42)
[2020-11-14 09:23] LABS: WHITE BLOOD COUNT (AUTO) 22.7 K/uL (4.8-10.8)
--- NOTE | 2020-11-14 09:36 | NUR ---
alert, oriented, breakfast 100% consumption. so much in pain, R foot, 11/16, requested Dilaudid 1mg ivp given, reminds of Percocet later, every 4hrs as ordered.
[2020-11-14] MEDS: DAPTOmycin 500 MG in NS 50 ML IV SCH (10:58)
--- NOTE | 2020-11-14 12:24 | NUR ---
continues to ask for Dilaudid one mg ivp as ordered, and in between also Percocet. Request honored.
[2020-11-14 13:44] VITALS: BP_SYST 102
--- NOTE | 2020-11-14 16:04 | NUR ---
despite Dilaudid every 3hrs as needed, one mg ivp, also got Percocet in between, " pain unbearable, he said. Asked the attending on round, whether Dilaudid should be increased for the patient, no new order.
[2020-11-14 16:49] VITALS: BP_SYST 112
--- NOTE | 2020-11-14 19:35 | NUR ---
ROUNDS PATIENT RESTING COMFORTABLY IN BED, VITALS STABLE, NO PAIN AT THIS TIME. ASSESSMENT DONE AND DOCUEMNTED. SEE FLOWSHEET. NEEDS ATTENDED TO. SAFETY MEASURES IN PLACED. CALL LIGHT PLACED WITHIN REACH.
--- NOTE | 2020-11-15 00:13 | NUR ---
PATIENT RESTING: Patient resting quietly. No acute distress noted. Vital signs within normal range.
[2020-11-15 00:24] VITALS: BP_SYST 135
[2020-11-15] MEDS: HYDROmorphone 1 MG/ML INJ. CARTRIDGE IVP PRN ×3 (02:37→09:30)
--- NOTE | 2020-11-15 04:12 | NUR ---
ROUNDS PATIENT ASLEEP, RESPIRATIONS EVEN AND UNLABORED, WILL CONTINUE TO MONITOR.
[2020-11-15] MEDS: INSULIN REGULAR, HUMAN 100 UNITS/ML, 10 ML VIAL (humuLIN R) SUBCUT PRN ×3 (05:49→20:40)
[2020-11-15 06:41] LABS: BASOPHILS # (AUTO) 0.1 K/uL (0.0-0.2); BASOPHILS % (AUTO) 0.3 % (0.0-2.0); EOSINOPHILS # (AUTO) 0.5 K/uL (0.0-0.4); EOSINOPHILS % (AUTO) 1.9 % (0.0-4.0); HEMATOCRIT 32.2 % (36-54); HEMOGLOBIN 10.8 g/dL (14.0-18.0); LYMPHOCYTES # (AUTO) 2.4 K/uL (1.0-5.5); LYMPHOCYTES % (AUTO) 10.3 % (20.5-51.5); MEAN CORPUSCULAR HEMOGLOBIN 30 pg (27-31); MEAN CORPUSCULAR HGB CONC 34 % (32-36); MEAN CORPUSCULAR VOLUME 88 fL (79.0-98.0); MONOCYTES # (AUTO) 1.7 K/uL (0.0-1.0); NEUTROPHILS # (AUTO) 19.2 K/uL (1.8-7.7); PLATELET COUNT (AUTO) 385 K/uL (130-430); RED BLOOD CELL COUNT(AUTO) 3.66 MIL/uL (4.2-6.2); RED CELL DISTRIBUTION WIDTH 13.9 % (9.0-15.0); WHITE BLOOD COUNT (AUTO) 23.8 K/uL (4.8-10.8)
[2020-11-15 07:29] LABS: CALCIUM 8.6 mg/dL (8.4-11.0); CREATININE 0.74 mg/dL (0.55-1.30); POTASSIUM 4.3 mmol/L (3.5-5.1)
--- NOTE | 2020-11-15 07:55 | NUR ---
Opening Notes Pt is awake, alert and oriented x4. No resp distress noted. Breathing is even and unlabored. Pt is c/o intermittent right foot pain, sharp, 8/10. Per patient, "My pain med works for about 1.5 hours then it starts hurting again." PICC line noted on THELMA, double lumen, flushing well, dressing clean and dry. BSC commode at bedside. Pt is noted with a right foot dressing. Dressing is clean and dry. Neurochecks within normal limits. All needs met at this time. Safety and fall precautions in place. Bed in lowest position, locked. Will continue to monitor.
[2020-11-15 08:00] VITALS: BP_SYST 120
[2020-11-15] MEDS: NICOTINE 21 MG/24 HR PATCH.TD24 TD SCH (09:00)
[2020-11-15] MEDS: ENOXAPARIN SODIUM 40 MG/0.4 ML SYRINGE SUBCUT SCH (09:30)
[2020-11-15] MEDS: ASCORBIC ACID 500 MG TABLET PO SCH ×2 (09:38→20:38)
[2020-11-15] MEDS: BALSAM PERU/CASTOR OIL 60 GM OINT...G. TP SCH (09:38)
[2020-11-15] MEDS: MULTIVITAMINS TAB 1 TABLET PO SCH (09:38)
[2020-11-15 11:01] LABS: NEUTROPHILS % (AUTO) 80.5 % (40.0-70.0)
[2020-11-15] MEDS ORDERED: PIPERACILLIN/TAZO 4.5GM/DEX-IS 100 ML IV ONE (11:30)
[2020-11-15 12:00] VITALS: BP_SYST 122
[2020-11-15] MEDS: HYDROmorphone 2 MG/ML VIAL IVP PRN ×3 (12:54→21:36)
--- NOTE | 2020-11-15 13:39 | NUR ---
Patient is being seen and examined by DR MITCHELL.
[2020-11-15] MEDS: DAPTOmycin 500 MG in NS 50 ML IV SCH (13:40)
--- NOTE | 2020-11-15 13:45 | NUR ---
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 11/09: S/P Debridement of forefoot, excision of the 5th metatarsal digit and irrigation lavage. 11/13: S/P Right Foot Debridement and Amputation SARS-CoV-2 Ag Rapid 11/05 Negative Subjective Information: Pt remains w/ good PO intake and appetite is excellent. letter of credit clerk reports that pt has been asking for double portions of food. Per EMR review, pt is POD#2 S/P Right foot debridement and amputation. Last BM 11/12 x1, abdomen is soft and nondistended w/ active bowel sounds. Ranulfo scale: 17, pt was seen by compensation specialist on 11/10 and noted: right foot necrosis going towards 4th digit and forefoot. No edema noted. PO intake was good x 3 days, w/ pt consuming 75-100% of meals, pt was NPO 11/13 for procedure. Pt is S/P surgery and may benefit from Hira for wound healing. Current Diet Order/Nutrition Support: CCHO diet x 2 days Pertinent Medications: Zofran, Metformin, Zinc, VIT C, MVI, SSI, Lovenox Pertinent Labs 11/15: WBC 23.8H, BG 231H, POC BG 242H, BUN 17WNL, Cre 0.74WNL Height: 5 feet 9.00 inches Weight: 170 pounds/ 77.671706 kilograms (11/10) stable Body Mass Index: 25.10 kg/m2 Estimated Energy Expenditure (kcals/day) 5082-2075 Kcal/day (30-35 kcal/kg CBW for wound healing) Estimated Protein Required (g/day) 77-116 gm/day (1-1.5 gm/kg CBW for wound healing) Estimated Fluid Required (l/day) 2.3-2.7 L/day (1ml/calorie for maintenance) Problem/Etiology/Signs/Symptoms Increased protein needs r/t skin breakdown AEB increased protein needs for wound healing. (*ongoing) Altered nutrition related labs r/t endocrine dysfunction AEB elevated BG, DM. (*ongoing) Expected Outcomes/Goals Monitor appetite and PO intake w/ goal of pt meeting more than 75% of estimated nutritional needs, labs trending WNL, normal GI function, skin integrity/wt maintenance. Dietitian Recommendations *Recommend: continue CCHO diet, add Hira BID. Follow Up Mod Risk: F/U in 3-5 days
--- NOTE | 2020-11-15 13:51 | NUR ---
Dietitian Recommendations *Recommend: continue CCHO diet, add Hira BID. Please see Nutrition F/U for details. ELISE HERNANDEZ
[2020-11-15] MEDS: OXYCODONE/ACETAMINOPHEN 5-325 TABLET PO PRN (15:49)
[2020-11-15 16:02] VITALS: BP_SYST 132
--- NOTE | 2020-11-15 18:55 | NUR ---
Closing Notes Patient is awake, alert and oriented x4. No resp distress noted. Breathing is even and unlabored. Pt was given pain meds earlier in shift. Will endorse to next shift to reassess pain level. PICC line noted on THELMA, double lumen, dry and intact. BSC at bedside. All needs met. Safety and fall precautions in place. Bed in lowest position, locked. Will continue to monitor.
--- NOTE | 2020-11-15 19:30 | NUR ---
Opening note Received report from day shift RN. Pt is awake, A/Ox4. No s/s of respiratory distress. PICC line site is intact and patent. Right foot dressing is dry and intact. Fall and safety precautions are in place with bed in lowest position and call light within reach. Will continue to monitor.
[2020-11-15 20:00] VITALS: BP_SYST 124
[2020-11-15] MEDS: PIPERACILLIN/TAZO 4.5GM/DEX-IS 100 ML IV SCH (21:37)
[2020-11-16 00:14] VITALS: BP_SYST 125
--- NOTE | 2020-11-16 00:23 | NUR ---
RN rounds Pt is sleeping. VS are stable. will continue to monitor
[2020-11-16] MEDS: HYDROmorphone 2 MG/ML VIAL IVP PRN ×6 (01:52→22:33)
[2020-11-16] MEDS: OXYCODONE/ACETAMINOPHEN 5-325 TABLET PO PRN ×3 (05:01→16:47)
[2020-11-16] MEDS: PIPERACILLIN/TAZO 4.5GM/DEX-IS 100 ML IV SCH ×3 (06:20→22:23)
[2020-11-16] MEDS: INSULIN REGULAR, HUMAN 100 UNITS/ML, 10 ML VIAL (humuLIN R) SUBCUT PRN ×4 (06:27→22:21)
--- NOTE | 2020-11-16 06:53 | NUR ---
Closing note Pt is awake resting in bed. states pain level is 7/10 on right foot. pain medication given. no s/s of respiratory distress. PICC line site is intact and patent. Fall and safety precautions are in place with bed in lowest position and call light within reach. Will continue to monitor until endorsed to day shift RN.
[2020-11-16 08:00] VITALS: BP_SYST 121
--- NOTE | 2020-11-16 08:00 | NUR ---
OPENING NOTE Received report from shift nurse manager RN. Pt is awake, a/o x4. Breathing is even and unlabored, Vital signs obtained and are within normal limits, patient has 5/10 pain in right foot. PICC LINE site is intact. Fall and safety are in place with bed in lowest position and call light within reach. Will continue to monitor.
[2020-11-16] MEDS: MULTIVITAMINS TAB 1 TABLET PO SCH (08:46)
[2020-11-16] MEDS: NICOTINE 21 MG/24 HR PATCH.TD24 TD SCH ×2 (08:46→08:57)
[2020-11-16] MEDS: ASCORBIC ACID 500 MG TABLET PO SCH ×2 (08:46→22:23)
[2020-11-16] MEDS: ENOXAPARIN SODIUM 40 MG/0.4 ML SYRINGE SUBCUT SCH (08:54)
[2020-11-16] MEDS: BALSAM PERU/CASTOR OIL 60 GM OINT...G. TP SCH (09:04)
[2020-11-16 11:49] LABS: BASOPHILS # (AUTO) 0.1 K/uL (0.0-0.2); BASOPHILS % (AUTO) 0.5 % (0.0-2.0); EOSINOPHILS # (AUTO) 0.4 K/uL (0.0-0.4); EOSINOPHILS % (AUTO) 1.9 % (0.0-4.0); HEMATOCRIT 33.1 % (36-54); LYMPHOCYTES # (AUTO) 1.4 K/uL (1.0-5.5); LYMPHOCYTES % (AUTO) 6.2 % (20.5-51.5); MEAN CORPUSCULAR HEMOGLOBIN 29 pg (27-31); MEAN CORPUSCULAR HGB CONC 33 % (32-36); MEAN CORPUSCULAR VOLUME 89 fL (79.0-98.0); MONOCYTES # (AUTO) 2.1 K/uL (0.0-1.0); NEUTROPHILS # (AUTO) 18.9 K/uL (1.8-7.7); NEUTROPHILS % (AUTO) 82.4 % (40.0-70.0); PLATELET COUNT (AUTO) 422 K/uL (130-430); RED BLOOD CELL COUNT(AUTO) 3.74 MIL/uL (4.2-6.2)
[2020-11-16] MEDS: DAPTOmycin 500 MG in NS 50 ML IV SCH (11:49)
[2020-11-16 12:10] VITALS: BP_SYST 113
[2020-11-16 12:32] LABS: ERYTHROCYTE SEDIMENTATION RATE 91 MM/HR (0-15)
[2020-11-16 16:19] VITALS: BP_SYST 117
--- NOTE | 2020-11-16 18:27 | NUR ---
PT GIVEN PAIN MEDICATION. PT RECEIVED PAIN MED EVERY 4 HOURS DILAUDID AND PERCOCET IN BETWEEN. DR MITCHELL WAS HERE AND SEEN PT, MD SAID WAIT DR WOOD OR DR HEATH TO CHANGE WOUND DRESSING.
--- NOTE | 2020-11-16 19:40 | NUR ---
CLOSING NOTE PATIENT SITTING UP IN BED EATING DINNER. PATIENT COMPLAINS OF PAIN IN RIGHT FOOT, PRN MEDS GIVEN. SAFETY, FALL AND ASPIRATION PRECAUTIONS IN PLACE. ALL NEEDS MET THROUGHOUT SHIFT. BED IS LOCKED AND IN LOWEST POSITION, RAILS UP AND CALL LIGHT IN REACH. WILL ENDORSE TO HELPER MAINTENANCE CLEANING.
[2020-11-16 20:00] VITALS: BP_SYST 137
--- NOTE | 2020-11-16 22:21 | NUR ---
ACCUCHECK 215 AND 4 UNITS REGULAR INSULIN GIVEN SQ. SKIN REMAINS WARM AND DRY TO TOUCH. PT DECLINED HS SNACKS.
--- NOTE | 2020-11-16 22:33 | NUR ---
DILAUDID 2MG GIVEN IV FOR C/O 9/10 RIGHT FOOT PAIN. CALL LIGHT IS WITH PT AND BED ALARM IS ON. PT WAS INSTRUCTED NOT TO GET OUT OF BED WITHOUT ASSISTANCE IF HE FEELS DIZZY OR DROWSY AND PT VERBALIZED UNDERSTANDING.
[2020-11-17] VITALS: BP_SYST 124
[2020-11-17] MEDS: HYDROmorphone 2 MG/ML VIAL IVP PRN ×6 (02:39→23:23)
--- NOTE | 2020-11-17 02:39 | NUR ---
DILAUDID 2MG GIVEN IV FOR C/O 8/10 RIGHT FOOT PAIN. CALL LIGHT IS WITH PT AND BED ALARM IS ON. PT WAS INSTRUCTED NOT TO GET OUT OF BED WITHOUT ASSISTANCE IF HE FEELS DIZZY OR DROWSY AND PT VERBALIZED UNDERSTANDING.
[2020-11-17] MEDS: PIPERACILLIN/TAZO 4.5GM/DEX-IS 100 ML IV SCH ×3 (05:37→22:05)
[2020-11-17] MEDS: INSULIN REGULAR, HUMAN 100 UNITS/ML, 10 ML VIAL (humuLIN R) SUBCUT PRN ×2 (06:32→22:10)
--- NOTE | 2020-11-17 06:32 | NUR ---
PT IS AWAKE AND RESTING COMFORTABLY IN BED. ALL PT'S NEEDS WERE ATTENDED TO. ACCUCHECK 206 THIS AM AND 4 UNITS REGULAR INSULIN GIVEN SQ. SKIN REMAINS WARM AND DRY TO TOUCH.
--- NOTE | 2020-11-17 06:39 | NUR ---
DILAUDID 2MG GIVEN IV FOR C/O 7/10 RIGHT FOOT PAIN. CALL LIGHT IS WITH PT AND BED ALARM IS ON. PT WAS INSTRUCTED NOT TO GET OUT OF BED WITHOUT ASSISTANCE IF HE FEELS DIZZY OR DROWSY AND PT VERBALIZED UNDERSTANDING.
--- NOTE | 2020-11-17 07:25 | NUR ---
OPENING NOTES: RECEIVED REPORT FROM CURB ATTENDANT NURSE. PATIENT IS AWAKE LAYING DOWN IN BED. TOLERATED OXYGEN ON ROOM AIR WITH NO DISTRESS NOTED. PICC LINE PATENT AND INTACT WITH NO INFILTRATION NOTED. PATIENT STABLE AT THIS TIME. SAFETY, FALL, AND ASPIRATION PRECAUTIONS ARE IN PLACE. BED LOCKED IN LOWEST POSITION AND CALL LIGHT IN REACH. WILL CONTINUE TO MONITOR PATIENT FROM ANY CHANGES.
[2020-11-17 08:00] VITALS: BP_SYST 131
[2020-11-17] MEDS: NICOTINE 21 MG/24 HR PATCH.TD24 TD SCH ×3 (09:00→10:39)
[2020-11-17] MEDS: BALSAM PERU/CASTOR OIL 60 GM OINT...G. TP SCH (09:58)
[2020-11-17] MEDS: ENOXAPARIN SODIUM 40 MG/0.4 ML SYRINGE SUBCUT SCH (09:59)
[2020-11-17] MEDS: ASCORBIC ACID 500 MG TABLET PO SCH ×2 (09:59→22:05)
[2020-11-17] MEDS: MULTIVITAMINS TAB 1 TABLET PO SCH (10:00)
[2020-11-17] MEDS: DAPTOmycin 500 MG in NS 50 ML IV SCH (11:28)
--- NOTE | 2020-11-17 11:45 | NUR ---
RODOLFO note: faxed the referral package to [facility] fax # [phone] and received call back from Neeta/RODOLFO : the pt is accepted but is pending auth from [facility]. Addendum: 11/17/20 at 1543 by Heather Martinez RN F/U with Neeta: still pending auth, and also no iso bed today. The pt is MDRO abscess wound and Streptococcus on surgical wound. Covid-19 test required with in 72 hr of admission to the rehab. >> Notified Anastasiia /Rick : [facility] accepted the pt and is waiting for authorization. Anastasiia will arrange the ambulance and call be back with info. -- MARIA T hall.
[2020-11-17 12:00] VITALS: BP_SYST 130
[2020-11-17] MEDS: OXYCODONE/ACETAMINOPHEN 5-325 TABLET PO PRN ×2 (12:26→22:14)
[2020-11-17 12:31] LABS: BASOPHILS # (AUTO) 0.1 K/uL (0.0-0.2); BASOPHILS % (AUTO) 0.4 % (0.0-2.0); EOSINOPHILS # (AUTO) 0.5 K/uL (0.0-0.4); HEMATOCRIT 34.1 % (36-54); HEMOGLOBIN 11.5 g/dL (14.0-18.0); LYMPHOCYTES # (AUTO) 1.5 K/uL (1.0-5.5); LYMPHOCYTES % (AUTO) 5.7 % (20.5-51.5); MEAN CORPUSCULAR HEMOGLOBIN 30 pg (27-31); MEAN CORPUSCULAR HGB CONC 34 % (32-36); MEAN CORPUSCULAR VOLUME 88 fL (79.0-98.0); MONOCYTES # (AUTO) 2.8 K/uL (0.0-1.0); MONOCYTES % (AUTO) 10.8 % (1.7-9.3); NEUTROPHILS # (AUTO) 20.9 K/uL (1.8-7.7); NEUTROPHILS % (AUTO) 81.1 % (40.0-70.0); PLATELET COUNT (AUTO) 482 K/uL (130-430); RED BLOOD CELL COUNT(AUTO) 3.88 MIL/uL (4.2-6.2); RED CELL DISTRIBUTION WIDTH 13.9 % (9.0-15.0)
[2020-11-17 12:42] LABS: WHITE BLOOD COUNT (AUTO) 25.8 K/uL (4.8-10.8)
[2020-11-17 16:11] VITALS: BP_SYST 121
--- NOTE | 2020-11-17 18:40 | NUR ---
CLOSING NOTES: PATIENT IS AWAKE LAYING DOWN IN BED. TOLERATED OXYGEN ON ROOM AIR WITH NO DISTRESS NOTED. PICC LINE PATENT AND INTACT WITH NO INFILTRATION NOTED. PATIENT STABLE AT THIS TIME. SAFETY, FALL, AND ASPIRATION PRECAUTIONS REMAINED IN PLACE. BED LOCKED IN LOWEST POSITION AND CALL LIGHT IN REACH. WILL ENDORSE PATIENT CARE TO ONCOMING DETECTIVE PRECINCT NURSE.
[2020-11-17 20:00] VITALS: BP_SYST 139
--- NOTE | 2020-11-17 21:21 | NUR ---
DR. MITCHELL CALLED BACK REGARDING PT METING SEPSIS CRITERIA (WBC 25.8 AND HR [address]). DR. MITCHELL GAVE ORDERS TO NOTIFY INFECTIOUS DISEASE MD. WILL PAGE DR. CABA AND NOTIFY HIM.
--- NOTE | 2020-11-17 21:30 | NUR ---
PAGED I PAGED DR. BAKER @ [phone] I SPOKE WITH ORQUIDEA MCKINNON
--- NOTE | 2020-11-17 21:59 | NUR ---
PAGED DR. BAKER I SPOKE WITH CASANDRA EXCHANGE THIS IS THE SECOND CALL
--- NOTE | 2020-11-17 22:07 | NUR ---
ACCUCHECK 201 AND 4 UNITS REGULAR INSULIN GIVEN SQ. SKIN REMAINS WARM AND DRY TO TOUCH. PT DECLINED HS SNACKS.
--- NOTE | 2020-11-17 22:14 | NUR ---
PERCOCET 5/325MG 1 TABLET WAS GIVEN PO PER PT'S REQUEST FOR C/O 6/10 RIGHT FOOT PAIN. PT WAS INSTRUCTED NOT TO GET OUT OF BED IF HE FEELS DIZZY OR DROWSY AND PT VERBALIZED UNDERSTANDING. CALL LIGHT IS WITH PT AND BED ALARM IS ON.
--- NOTE | 2020-11-17 22:29 | NUR ---
DR. CABA CALLED BACK AND WAS INFORMED DR. MITCHELL WANTED HIM NOTIFIED OF PT MEETING SEPSIS CRITERIA. NEW ORDERS RECEIVED FOR IV IL NS BOLUS, BLOOD CULTURES X2 VIA PICC LINE AND LACTIC ACID X1.
[2020-11-17] MEDS ORDERED: NACL 0.9% 1,000 ML IV ONE (22:30)
--- NOTE | 2020-11-17 22:43 | NUR ---
1L NORMAL SALINE BOLUS STARTED ORDERED BY DR. CABA.
--- NOTE | 2020-11-17 23:10 | NUR ---
FIRST SET OF BLOOD CULTURES AND LACTIC ACID DRAWN FROM RED PORT PICC LINE, UTILIZING STERILE TECHNIQUE, FOLLOWED BY 20ML NS FLUSH.
--- NOTE | 2020-11-17 23:15 | NUR ---
SECOND SET OF BLOOD CULTURES DRAWN FROM PURPLE PORT PICC LINE, UTILIZING STERILE TECHNIQUE, FOLLOWED BY 20ML NS FLUSH.
--- NOTE | 2020-11-17 23:23 | NUR ---
PT VERBALIZED NO RELIEF FROM PERCOCET. DILAUDID 2MG WAS GIVEN IV PER PT'S REQUEST FOR C/O 7/10 RIGHT FOOT PAIN. CALL LIGHT IS WITH PT AND BED ALARM IS ON. PT WAS INSTRUCTED NOT TO GET OUT OF BED WITHOUT ASSISTANCE IF HE FEELS DIZZY OR DROWSY AND PT VERBALIZED UNDERSTANDING.
[2020-11-18 00:07] VITALS: BP_SYST 124
[2020-11-18 00:08] VITALS: BP_SYST 124
[2020-11-18] MEDS: HYDROmorphone 2 MG/ML VIAL IVP PRN ×5 (04:13→21:05)
--- NOTE | 2020-11-18 04:13 | NUR ---
DILAUDID 2MG GIVEN IV PER PT'S REQUEST FOR C/O 10/10 RIGHT FOOT PAIN. CALL LIGHT IS WITH PT AND BED ALARM IS ON. PT WAS INSTRUCTED NOT TO GET OUT OF BED WITHOUT CALLING ASSISTANCE IF HE FEELS DIZZY OR DROWSY AND PT VERBALIZED UNDERSTANDING.
[2020-11-18] MEDS: PIPERACILLIN/TAZO 4.5GM/DEX-IS 100 ML IV SCH ×3 (05:31→21:07)
[2020-11-18] MEDS: INSULIN REGULAR, HUMAN 100 UNITS/ML, 10 ML VIAL (humuLIN R) SUBCUT PRN ×2 (06:26→21:07)
[2020-11-18 07:45] VITALS: BP_SYST 125
--- NOTE | 2020-11-18 07:45 | NUR ---
OPENING NOTE Patient resting in the bed. No acute distress. AAO x 4. Denied of pain at this time. Skin warm and dry to touch. PICC line intact to THELMA, no redness, no swelling, patent. Covered with clean and dry transparent dressing. On s/p right midfoot amputation, surgical dressing intact, no bleeding, no drainage, no odor noted. On isolation. Safety measure maintained. Call light within reached. Bed locked in low position, side rails up, bed alarm on. Will continue to monitor.
[2020-11-18] MEDS: ASCORBIC ACID 500 MG TABLET PO SCH ×2 (08:28→20:50)
[2020-11-18] MEDS: MULTIVITAMINS TAB 1 TABLET PO SCH (08:28)
[2020-11-18] MEDS: ENOXAPARIN SODIUM 40 MG/0.4 ML SYRINGE SUBCUT SCH (08:30)
[2020-11-18] MEDS: BALSAM PERU/CASTOR OIL 60 GM OINT...G. TP SCH (08:30)
--- NOTE | 2020-11-18 08:30 | NUR ---
DILAUDID GIVEN Patient c/o right foot pain 10/16, Dilaudid 2mg IVP given as ordered. No acute distress. Safety measure maintained. Call light within reached. Continue to monitor.
[2020-11-18] MEDS: NICOTINE 21 MG/24 HR PATCH.TD24 TD SCH (08:31)
[2020-11-18 08:43] LABS: ALBUMIN 1.9 g/dL (3.4-4.8); CALCIUM 8.5 mg/dL (8.4-11.0); CREATININE 0.7 mg/dL (0.55-1.30); POTASSIUM 3.6 mmol/L (3.5-5.1); TOTAL BILIRUBIN 0.3 mg/dL (0.0-1.0)
--- NOTE | 2020-11-18 10:00 | NUR ---
PATIENT REQUESTED TO SKIP TREATMENT TODAY DUE TO HIS RIGHT FOOT PAIN AND INTERRUPTED SLEEP PATTERN. PLAN: ATTEMPT TOMORROW.
[2020-11-18 12:00] VITALS: BP_SYST 122
[2020-11-18] MEDS: DAPTOmycin 500 MG in NS 50 ML IV SCH (12:31)
--- NOTE | 2020-11-18 12:32 | NUR ---
BS 143 No insulin coverage needed per sliding scale. Patient resting in the bed. No acute distress noted. Refused lunch. Safety measure maintained. Call light within reached. Continue to monitor.
[2020-11-18] MEDS: OXYCODONE/ACETAMINOPHEN 5-325 TABLET PO PRN ×2 (14:52→19:02)
--- NOTE | 2020-11-18 14:52 | NUR ---
PERCOCET GIVEN Patient c/o right foot pain 6/10 after using bedside commode. No acute distress. Percocet 5/325mg 1 tab given as ordered. Safety measure maintained. Call light within reached. Continue to monitor.
[2020-11-18 16:00] VITALS: BP_SYST 128
--- NOTE | 2020-11-18 16:15 | NUR ---
CM note: Nicholas Hardy RN CM at [facility] [phone]: after clinical reviewed the pt is not approved for acute rehab but will approve for snf. >> Faxed the referral to [facility]: unable to take pt with wound care dt the facility is during survey. >> faxed to [facility]; there is no bed , unable to accept the pt. >> Faxed to [facility]: the pt is accepted but pending auth from [facility]. Per Jun, will call nursing unit with bed assignment once got the auth. >> May use any ambulance with ref#AUTH #[id number]. >> Informed pt of the dcp to [facility] with possible transfer today. The pt agreed with the POC.
--- NOTE | 2020-11-18 16:45 | NUR ---
DILAUDID GIVEN Patient c/o right foot pain 8/, Dilaudid 2mg IVP given as ordered. No acute distress. Safety measure maintained. Call light within reached. Continue to monitor.
--- NOTE | 2020-11-18 16:53 | NUR ---
BS 118 No insulin coverage needed per sliding scale. Patient resting in the bed. No acute distress noted. Refused lunch. Safety measure maintained. Call light within reached. Continue to monitor.
--- NOTE | 2020-11-18 18:55 | NUR ---
CLOSING NOTE Patient resting in the bed. No acute distress. PRN pain med given as needed as ordered. Skin warm and dry to touch. PICC line intact to THELMA, no redness, no swelling, patent. Covered with clean and dry transparent dressing. On s/p right midfoot amputation, surgical dressing intact, no bleeding, no drainage, no odor noted. Isolation maintained. Safety measure maintained. Call light within reached. Bed locked in low position, side rails up, bed alarm on. Will endorse to night nurse.
[2020-11-18 19:45] VITALS: BP_SYST 122
--- NOTE | 2020-11-18 19:45 | NUR ---
INITIAL NOTE AT INITIAL ASSESSMENT, PATIENT IS RESTING IN BED, STABLE, NO SIGNS OF RESPIRATORY DISTRESS. PATIENT VERBALIZES TOLERABLE PAIN. PLAN OF CARE FOR THE EVENING IS COMMUNICATED WITH THE PATIENT. PATIENT DEMONSTRATES CORRECT USAGE OF CALL LIGHT AT THIS TIME. BED IS LOCKED, ALARMED, AND AT THE LOWEST LEVEL. FALL SAFETY EDUCATION PROVIDED. FALL, SAFETY, ASPIRATION, RESPIRATORY, AND ISOLATION PRECAUTIONS WILL BE TAKEN THROUGHOUT THE SHIFT.
--- NOTE | 2020-11-18 21:05 | NUR ---
PAIN NOTE PATIENT IS COMPLAINING OF SEVERE PAIN, PRN MEDICATION IS GIVEN AT THIS TIME FOR PATIENTS PAIN COMPLAINT PER MD ORDERS. WILL REASSESS IF PRN MEDICATION GIVEN WAS EFFECTIVE. CALL LIGHT PLACED WITHIN REACH. BED IS LOCKED, ALARMED, AND AT THE LOWEST LEVEL.
[2020-11-19] VITALS: BP_SYST 136
[2020-11-19] MEDS: HYDROmorphone 2 MG/ML VIAL IVP PRN ×5 (01:46→21:10)
[2020-11-19] MEDS: OXYCODONE/ACETAMINOPHEN 5-325 TABLET PO PRN ×2 (04:06→08:56)
[2020-11-19] MEDS: PIPERACILLIN/TAZO 4.5GM/DEX-IS 100 ML IV SCH ×3 (06:12→21:02)
[2020-11-19] MEDS: INSULIN REGULAR, HUMAN 100 UNITS/ML, 10 ML VIAL (humuLIN R) SUBCUT PRN ×3 (06:24→21:11)
--- NOTE | 2020-11-19 06:27 | NUR ---
CLOSING NOTE PATIENT VERBALIZED THAT PRN MEDICATION GIVEN TO HIM FOR HIS PAIN MADE HIS PAIN TOLERABLE DURING THE NIGHT, HE SLEPT WELL THROUGHOUT THE SHIFT, NO SHORTNESS OF BREATH NOTED. AT THIS TIME, PATIENT IS RESTING IN BED, STABLE, NO SIGNS OF RESPIRATORY DISTRESS. CALL LIGHT IS WITHIN REACH. BED IS LOCKED, ALARMED, AND AT THE LOWEST LEVEL. FALL, SAFETY, RESPIRATORY, AND ISOLATION PRECAUTIONS HAVE BEEN TAKEN THROUGHOUT THE SHIFT. WILL CONTINUE TO MONITOR UNTIL SHIFT REPORT IS GIVEN AT BEDSIDE TO AM NURSE.
[2020-11-19 08:20] VITALS: BP_SYST 130
--- NOTE | 2020-11-19 08:21 | NUR ---
OPENING NOTES: PATIENT EATING BREAKFAST. NO SIGNS OF ACUTE DISTRESS NOTED. FALL AND SAFETY PRECAUTION REINFORCED. CALL LIGHT WITHIN REACH.
[2020-11-19] MEDS: BALSAM PERU/CASTOR OIL 60 GM OINT...G. TP SCH (08:42)
[2020-11-19] MEDS: ASCORBIC ACID 500 MG TABLET PO SCH ×2 (08:43→21:02)
[2020-11-19] MEDS: MULTIVITAMINS TAB 1 TABLET PO SCH (08:43)
[2020-11-19] MEDS: ENOXAPARIN SODIUM 40 MG/0.4 ML SYRINGE SUBCUT SCH (08:45)
[2020-11-19] MEDS: NICOTINE 21 MG/24 HR PATCH.TD24 TD SCH (08:46)
[2020-11-19] MEDS: DAPTOmycin 500 MG in NS 50 ML IV SCH (12:00)
[2020-11-19 12:19] VITALS: BP_SYST 144
--- NOTE | 2020-11-19 12:35 | NUR ---
Patient requested to rest. He just transferred from the bed to the commode with nursing supervision. Right foot pain continues to be a barrier to his progress.
--- NOTE | 2020-11-19 12:40 | NUR ---
Received a call from CM from [facility]-they will not approve out of network SNF until all in network SNF's exhausted. Referral sent to [facility] and [facility]-all in network facilities for [facility].
[2020-11-19 16:16] VITALS: BP_SYST 118
--- NOTE | 2020-11-19 16:51 | NUR ---
Patient accepted at [facility] [place] [facility]
[2020-11-19 17:51] LABS: BASOPHILS # (AUTO) 0.1 K/uL (0.0-0.2); BASOPHILS % (AUTO) 0.4 % (0.0-2.0); EOSINOPHILS # (AUTO) 0.5 K/uL (0.0-0.4); EOSINOPHILS % (AUTO) 2.9 % (0.0-4.0); HEMATOCRIT 30.9 % (36-54); HEMOGLOBIN 10.2 g/dL (14.0-18.0); LYMPHOCYTES # (AUTO) 1.5 K/uL (1.0-5.5); MEAN CORPUSCULAR HEMOGLOBIN 29 pg (27-31); MEAN CORPUSCULAR HGB CONC 33 % (32-36); MEAN CORPUSCULAR VOLUME 88 fL (79.0-98.0); MONOCYTES # (AUTO) 1.9 K/uL (0.0-1.0); MONOCYTES % (AUTO) 9.8 % (1.7-9.3); NEUTROPHILS # (AUTO) 14.9 K/uL (1.8-7.7); NEUTROPHILS % (AUTO) 78.9 % (40.0-70.0); PLATELET COUNT (AUTO) 485 K/uL (130-430); RED BLOOD CELL COUNT(AUTO) 3.52 MIL/uL (4.2-6.2); RED CELL DISTRIBUTION WIDTH 13.7 % (9.0-15.0)
--- NOTE | 2020-11-19 18:58 | NUR ---
CLOSING NOTES: PATIENT RESTING IN BED. NO SIGNS OF ACUTE DISTRESS NOTED. CALL LIGHT WITHIN REACH. FALL AND SAFETY PRECAUTION RENDERED.
[2020-11-19 19:28] LABS: ERYTHROCYTE SEDIMENTATION RATE 98 MM/HR (0-15)
[2020-11-19 19:35] VITALS: BP_SYST 143
--- NOTE | 2020-11-19 19:35 | NUR ---
INITIAL NOTE AT INITIAL ASSESSMENT, PATIENT IS RESTING IN BED, STABLE, NO SIGNS OF RESPIRATORY DISTRESS. PATIENT VERBALIZES TOLERABLE PAIN. PLAN OF CARE FOR THE EVENING IS COMMUNICATED WITH THE PATIENT. PATIENT DEMONSTRATES CORRECT USAGE OF CALL LIGHT AT THIS TIME. PATIENT REFUSES BED ALARM AT THIS TIME DESPITE EDUCATIONAL SAFETY EFFORTS, FREQUENT ROUNDING WILL BE COMPLETED FOR SAFETY. FALL SAFETY EDUCATION PROVIDED. FALL, SAFETY, RESPIRATORY, AND ISOLATION PRECAUTIONS WILL BE TAKEN THROUGHOUT THE SHIFT.
--- NOTE | 2020-11-19 21:50 | NUR ---
DR. HEATH ROUNDS DR. HEATH AT BEDSIDE MAKING ROUNDS AT THIS TIME, DR. HEATH VERBALIZED TO PATIENT THAT HE WILL COME IN TOMORROW AM TO DO FIRST DRESSING CHANGE.
[2020-11-19] MEDS: ACETAMINOPHEN 325 MG TABLET PO PRN (23:24)
[2020-11-20] VITALS: BP_SYST 130
[2020-11-20] MEDS: HYDROmorphone 2 MG/ML VIAL IVP PRN ×6 (00:59→22:14)
[2020-11-20] MEDS: PIPERACILLIN/TAZO 4.5GM/DEX-IS 100 ML IV SCH ×3 (05:08→21:04)
[2020-11-20] MEDS: ACETAMINOPHEN 325 MG TABLET PO PRN (06:05)
[2020-11-20] MEDS: INSULIN REGULAR, HUMAN 100 UNITS/ML, 10 ML VIAL (humuLIN R) SUBCUT PRN ×3 (06:11→21:13)
--- NOTE | 2020-11-20 07:52 | NUR ---
Opening note Received report from night RN. Patient is alert and oriented X4, laying down in bed. On room air and tolerating well with no signs of shortness of breath noted. PICC line in left upper arm, saline locked with no signs of infiltration or infection noted. Right foot is wrapped. Bed locked and in lowest position. Call light within reach. Will continue to monitor.
[2020-11-20 08:00] VITALS: BP_SYST 133
[2020-11-20] MEDS: ASCORBIC ACID 500 MG TABLET PO SCH ×2 (08:04→21:04)
[2020-11-20] MEDS: BALSAM PERU/CASTOR OIL 60 GM OINT...G. TP SCH (08:05)
[2020-11-20] MEDS: MULTIVITAMINS TAB 1 TABLET PO SCH (08:05)
[2020-11-20] MEDS: NICOTINE 21 MG/24 HR PATCH.TD24 TD SCH (08:05)
[2020-11-20] MEDS: ENOXAPARIN SODIUM 40 MG/0.4 ML SYRINGE SUBCUT SCH (08:08)
[2020-11-20] MEDS: OXYCODONE/ACETAMINOPHEN *10*mg/325 mg TABLET PO PRN (11:05)
[2020-11-20] MEDS: DAPTOmycin 500 MG in NS 50 ML IV SCH (11:06)
[2020-11-20 12:09] VITALS: BP_SYST 130
--- NOTE | 2020-11-20 13:43 | NUR ---
Dr. Bolanos rounds Dr. Bolanos to see patient. Undressed right foot, assessed wound, and redressed. Patient given Dilaudid IVP. Pt tolerated procedure well. Will monitor.
[2020-11-20 16:27] VITALS: BP_SYST 132
--- NOTE | 2020-11-20 18:37 | NUR ---
Closing note Patient is laying down in bed. On room air and tolerating well with no signs of shortness of breath noted. PICC line in left upper arm, saline locked with no signs of infiltration or infection noted. Right foot is wrapped. Bed locked and in lowest position. Call light within reach. Will endorse to night nurse.
--- NOTE | 2020-11-20 19:45 | NUR ---
Opening note: Rcvd pt from dayshift RN. Pt is sitting up in bed, A&Ox4, breathing nonlabored to room air. THELMA PICC intact, saline locked, no infiltration noted, flushing well. Pt uses bedside commode. Dressing intact to R foot. Safety, isolation for MDRO wound, and fall precautions in place. Bed locked in low and call light with patient. Will continue to monitor.
[2020-11-20 20:00] VITALS: BP_SYST 113
--- NOTE | 2020-11-20 22:00 | NUR ---
RN Note Pt vital signs stable, pt complain of pain 10/10 in R foot. Will medicate. Will reassess.
--- NOTE | 2020-11-21 | NUR ---
RN Note pt vss. pt ambulate to bathroom with walker with assist. will ctm.
[2020-11-21 00:29] VITALS: BP_SYST 118
[2020-11-21] MEDS: HYDROmorphone 2 MG/ML VIAL IVP PRN ×4 (02:22→16:16)
--- NOTE | 2020-11-21 02:30 | NUR ---
RN Note Pt vital signs stable, pt complain of pain 10/10 in R foot. Will medicate. Will reassess.
[2020-11-21] MEDS: PIPERACILLIN/TAZO 4.5GM/DEX-IS 100 ML IV SCH ×3 (06:09→21:02)
[2020-11-21] MEDS: INSULIN REGULAR, HUMAN 100 UNITS/ML, 10 ML VIAL (humuLIN R) SUBCUT PRN ×2 (06:13→20:20)
--- NOTE | 2020-11-21 06:53 | NUR ---
Closing note: Pt is resting in bed, breathing nonlabored to room air. THELMA PICC intact, saline locked, no infiltration noted, flushing well. Dressing intact to R foot. Safety, isolation for MDRO wound, and fall precautions maintained. Bed locked in low and call light with patient. Will endorse to dayshift RN.
--- NOTE | 2020-11-21 07:30 | NUR ---
Opening note Received report from night RN. Patient is alert and oriented X4, laying down in bed. On room air and tolerating well with no signs of shortness of breath noted. PICC line in left upper arm, saline locked with no signs of infiltration or infection noted. No complaints of pain at this time. Right foot is wrapped. Bed locked and in lowest position. Call light within reach. Will continue to monitor.
[2020-11-21 07:52] LABS: BASOPHILS # (AUTO) 0.1 K/uL (0.0-0.2); BASOPHILS % (AUTO) 0.7 % (0.0-2.0); EOSINOPHILS # (AUTO) 0.6 K/uL (0.0-0.4); HEMATOCRIT 28.8 % (36-54); HEMOGLOBIN 9.7 g/dL (14.0-18.0); LYMPHOCYTES # (AUTO) 2.1 K/uL (1.0-5.5); LYMPHOCYTES % (AUTO) 10.6 % (20.5-51.5); MEAN CORPUSCULAR HEMOGLOBIN 30 pg (27-31); MEAN CORPUSCULAR HGB CONC 34 % (32-36); MEAN CORPUSCULAR VOLUME 88 fL (79.0-98.0); MONOCYTES # (AUTO) 1.9 K/uL (0.0-1.0); MONOCYTES % (AUTO) 9.9 % (1.7-9.3); NEUTROPHILS # (AUTO) 14.7 K/uL (1.8-7.7); PLATELET COUNT (AUTO) 480 K/uL (130-430); RED BLOOD CELL COUNT(AUTO) 3.26 MIL/uL (4.2-6.2); RED CELL DISTRIBUTION WIDTH 13.7 % (9.0-15.0); WHITE BLOOD COUNT (AUTO) 19.4 K/uL (4.8-10.8)
[2020-11-21 08:00] VITALS: BP_SYST 126
[2020-11-21] MEDS: ASCORBIC ACID 500 MG TABLET PO SCH ×2 (08:04→20:13)
[2020-11-21] MEDS: MULTIVITAMINS TAB 1 TABLET PO SCH (08:04)
[2020-11-21] MEDS: NICOTINE 21 MG/24 HR PATCH.TD24 TD SCH (08:09)
[2020-11-21] MEDS: ENOXAPARIN SODIUM 40 MG/0.4 ML SYRINGE SUBCUT SCH (08:09)
[2020-11-21] MEDS: BALSAM PERU/CASTOR OIL 60 GM OINT...G. TP SCH (08:09)
[2020-11-21 08:12] LABS: CALCIUM 8.8 mg/dL (8.4-11.0); CREATININE 0.58 mg/dL (0.55-1.30); TOTAL BILIRUBIN 0.3 mg/dL (0.0-1.0)
[2020-11-21] MEDS: DAPTOmycin 500 MG in NS 50 ML IV SCH (11:00)
--- NOTE | 2020-11-21 11:54 | NUR ---
RN note Patient complaining of pain to right lower extremity. Dilaudid IVP given. Visitor at bedside. Will monitor.
[2020-11-21 12:05] VITALS: BP_SYST 129
[2020-11-21 14:25] LABS: NEUTROPHILS % (AUTO) 75.8 % (40.0-70.0)
[2020-11-21 16:03] VITALS: BP_SYST 112
--- NOTE | 2020-11-21 16:28 | NUR ---
CM note: per RN Dena: No dc order yet, the pt required pain management, currently on IV Dilaudid. CM requested trial weaning off to PO Percocet. >> Called [facility] , s/w field service supervisor/Waldo stated he has no knowledge about the admission. Advised to call administration on Sunday.
--- NOTE | 2020-11-21 18:31 | NUR ---
Closing note Patient is laying down in bed. On room air and tolerating well with no signs of shortness of breath noted. PICC line in left upper arm, saline locked with no signs of infiltration or infection noted. Right foot is wrapped. Bed locked and in lowest position. Call light within reach. Fall and contact precautions remain in place. Will endorse to night nurse.
[2020-11-21 20:00] VITALS: BP_SYST 126
[2020-11-21] MEDS: OXYCODONE/ACETAMINOPHEN *10*mg/325 mg TABLET PO PRN (20:14)
--- NOTE | 2020-11-21 21:41 | NUR ---
Opening note Received report from geovany LIVE. Patient is alert and oriented X4, laying down in bed. On room air and tolerating well with no signs of shortness of breath noted. PICC line in left upper arm, saline locked with no signs of infiltration or infection noted. No complaints of pain at this time. Right foot is wrapped. Bed locked and in lowest position. Call light within reach. Will continue to monitor.
--- NOTE | 2020-11-21 21:42 | NUR ---
RN Note Pt vital signs stable. Pt agreeable to try PO pain medicine . Will reassess and ctm.
--- NOTE | 2020-11-22 | NUR ---
RN NOTE VITAL SIGNS STABLE. PT SLEEPING. WILL CTM
[2020-11-22 00:41] VITALS: BP_SYST 120
[2020-11-22] MEDS: HYDROmorphone 2 MG/ML VIAL IVP PRN ×2 (01:17→08:44)
--- NOTE | 2020-11-22 02:30 | NUR ---
PAIN MED GIVEN FOR PAIN 7/10 IN R FOOT. WILL REASSESS AND CTM.
[2020-11-22] MEDS: PIPERACILLIN/TAZO 4.5GM/DEX-IS 100 ML IV SCH ×2 (06:01→14:00)
[2020-11-22] MEDS: INSULIN REGULAR, HUMAN 100 UNITS/ML, 10 ML VIAL (humuLIN R) SUBCUT PRN (06:03)
--- NOTE | 2020-11-22 06:36 | NUR ---
CLOSING NOTE Patient is alert and oriented X4, laying down in bed. On room air and tolerating well with no signs of shortness of breath noted. PICC line in left upper arm, saline locked with no signs of infiltration or infection noted. No complaints of pain at this time. Right foot is wrapped. Bed locked and in lowest position. Call light within reach. Will endorse to roberta LIVE
[2020-11-22 07:15] LABS: CALCIUM 8.9 mg/dL (8.4-11.0); CREATININE 0.64 mg/dL (0.55-1.30); POTASSIUM 3.5 mmol/L (3.5-5.1)
--- NOTE | 2020-11-22 07:25 | NUR ---
OPENING NOTES: RECEIVED REPORT FROM BEER BREWER NURSE. PATIENT IS ASLEEP LAYING DOWN IN BED. TOLERATED OXYGEN ON ROOM AIR WITH NO DISTRESS NOTED. PICC LINE IN LEFT ARM PATENT AND INTACT WITH INFILTRATION NOTED. PATIENT STABLE AT THIS TIME. SAFETY, FALL, AND ASPIRATION PRECAUTIONS ARE IN PLACE. BED LOCKED IN LOWEST POSITION AND CALL LIGHT IN REACH. WILL CONTINUE TO MONITOR PATIENT FOR ANY CHANGES. Addendum: 11/22/20 at 0742 by Bassam Fox RN PICC LINE PATENT AND INTACT WITH NO INFILTRATION NOTED.
[2020-11-22 08:00] VITALS: BP_SYST 124
[2020-11-22 08:24] LABS: BASOPHILS # (AUTO) 0.1 K/uL (0.0-0.2); BASOPHILS % (AUTO) 0.6 % (0.0-2.0); EOSINOPHILS # (AUTO) 0.6 K/uL (0.0-0.4); EOSINOPHILS % (AUTO) 3.5 % (0.0-4.0); HEMATOCRIT 28.2 % (36-54); HEMOGLOBIN 9.5 g/dL (14.0-18.0); LYMPHOCYTES # (AUTO) 2.1 K/uL (1.0-5.5); LYMPHOCYTES % (AUTO) 12.3 % (20.5-51.5); MEAN CORPUSCULAR HEMOGLOBIN 29 pg (27-31); MEAN CORPUSCULAR HGB CONC 34 % (32-36); MEAN CORPUSCULAR VOLUME 87 fL (79.0-98.0); MONOCYTES # (AUTO) 1.7 K/uL (0.0-1.0); NEUTROPHILS # (AUTO) 12.4 K/uL (1.8-7.7); NEUTROPHILS % (AUTO) 73.6 % (40.0-70.0); PLATELET COUNT (AUTO) 452 K/uL (130-430); RED BLOOD CELL COUNT(AUTO) 3.23 MIL/uL (4.2-6.2); WHITE BLOOD COUNT (AUTO) 16.8 K/uL (4.8-10.8)
[2020-11-22] MEDS: ASCORBIC ACID 500 MG TABLET PO SCH (08:40)
[2020-11-22] MEDS: MULTIVITAMINS TAB 1 TABLET PO SCH (08:40)
[2020-11-22] MEDS: NICOTINE 21 MG/24 HR PATCH.TD24 TD SCH (08:41)
[2020-11-22] MEDS: BALSAM PERU/CASTOR OIL 60 GM OINT...G. TP SCH (08:41)
[2020-11-22] MEDS: ENOXAPARIN SODIUM 40 MG/0.4 ML SYRINGE SUBCUT SCH (08:44)
[2020-11-22] MEDS: OXYCODONE/ACETAMINOPHEN *10*mg/325 mg TABLET PO PRN (11:22)
[2020-11-22] MEDS: DAPTOmycin 500 MG in NS 50 ML IV SCH (11:24)
--- NOTE | 2020-11-22 11:27 | NUR ---
BLOOD SUGAR CHECKED -128 NO INSULIN GIVEN.
--- NOTE | 2020-11-22 11:36 | NUR ---
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 11/09: S/P Debridement of forefoot, excision of the 5th metatarsal digit and irrigation lavage. 11/13: S/P Right Foot Debridement and Amputation SARS-CoV-2 Ag Rapid 11/05 Negative Subjective Information: Pt is a/w transfer to LTAC. Pt remains on antibiotic treatment and wound care. Per EMR review, 11/22 x1, Ranulfo scale: 18. Pt was seen by seafood technology specialist on 11/10, please see note for details. Abdomen is soft and nondistended w/ active bowel sounds. PO intake records indicate pt has been eating 75-100% of most meals and is likely meeting adequate nutrition. Current diet remains adequate and appropriate. Current Diet Order/Nutrition Support: CCHO diet, Hira BID x 7 days Pertinent Medications: Zofran, Metformin, Zinc, VIT C, MVI, SSI, Lovenox Pertinent Labs 11/22: WBC 16.8H, BG 167H, POC BG 159H, BUN 12WNL, Cre 0.64WNL Height: 5 feet 9.00 inches Weight: 170 pounds/ 77.866245 kilograms (11/10) stable Body Mass Index: 25.10 kg/m2 Estimated Energy Expenditure (kcals/day) 0117-8919 Kcal/day (30-35 kcal/kg CBW for wound healing) Estimated Protein Required (g/day) 77-116 gm/day (1-1.5 gm/kg CBW for wound healing) Estimated Fluid Required (l/day) 2.3-2.7 L/day (1ml/calorie for maintenance) Problem/Etiology/Signs/Symptoms Increased protein needs r/t skin breakdown AEB increased protein needs for wound healing. (*ongoing) Altered nutrition related labs r/t endocrine dysfunction AEB elevated BG, DM. (*ongoing) Expected Outcomes/Goals Monitor appetite and PO intake w/ goal of pt meeting more than 75% of estimated nutritional needs, labs trending WNL, normal GI function, skin integrity/wt maintenance. Dietitian Recommendations *Recommend: continue CCHO diet and Hira BID. Follow Up Mod Risk: F/U in 3-5 days
--- NOTE | 2020-11-22 13:28 | NUR ---
RODOLFO note: communication with Gerda/rodolfo at [facility], stated the pt is approved for [facility]. and to use contracted ambulance for transfer: [facility] or [facility]. >> Booked with AMY Martinez , [facility] ambulance for pick up driver time at 1430--Per Michelle, the billing dept. will reach out to [facility] for payment. -- MARIA T Banegas made aware. >> Informed pt about the transfer today to [facility]. He agreed with POC.
--- NOTE | 2020-11-22 14:20 | NUR ---
SPOKE TO NIMA FRIEDMAN (RN) FROM [facility] AND GAVE REPORT. [facility] OTHER IS AWARE ABOUT THE TRANSFER.
--- NOTE | 2020-11-22 15:27 | NUR ---
Disposition 03
[2020-11-22 15:28] VITALS: BP_SYST 128
--- NOTE | 2020-11-22 15:40 | NUR ---
D/C Patient Patient given medication reconciliation form and D/C instructions. Exit Care provided. Patient verbalized understanding. MD discussed with patient the results and treatment provided. Ambulatory with steady gait for discharge to [facility]. Patient in stable condition, ID band removed. IV catheter removed, intact and dressing applied, no active bleeding. Patient educated on pain management. All belongings sent with patient.
== END 2020-11-22 15:40 | DRG 299 ==
LOC: SED 13:03 → SMU 16:14
PROVIDERS: ADMIT Family Medicine; ATTEND Family Medicine
PROC: 0HBMXZZ Excision of Right Foot Skin, External Approach (ICD-10-PCS; principal; 2020-11-09 17:30)
DX: E11.52 Type 2 diabetes mellitus with diabetic peripheral angiopathy with gangrene (principal); L89.894 Pressure ulcer of other site, stage 4; M86.8X7 Other osteomyelitis, ankle and foot; I96 Gangrene, not elsewhere classified; E11.621 Type 2 diabetes mellitus with foot ulcer; E11.69 Type 2 diabetes mellitus with other specified complication; D72.829 Elevated white blood cell count, unspecified; E11.628 Type 2 diabetes mellitus with other skin complications; F17.200 Nicotine dependence, unspecified, uncomplicated; I10 Essential (primary) hypertension; L08.9 Local infection of the skin and subcutaneous tissue, unspecified; L97.519 Non-pressure chronic ulcer of other part of right foot with unspecified severity; Z20.822 Contact with and (suspected) exposure to COVID-19
CPT/HCPCS: 36415; 71045; 73720; 80048; 80053; 80202; 82948; 82962; 83605; 85007; 85025; 85027; 85610-TC; 85651-TC; 85730-TC; 86140; 87040-TC; 87070-TC; 87075-TC; 87081; 88305; 93005; 96365; 97116-GP; 97163-GP; 97530-GP; 99285; A9575; J0878; J1100; J1170; J1650; J1815; J1885; J2001; J2248; J2250; J2405; J2543; J2704; J2765; J3010; J3370; J3490; J7030; J7050; J7120

== ENCOUNTER 2021-01-04 12:07 | Day surgery (SDC) | payer OTHER, SELFPAY ==
[2021-01-03 14:07] LABS: BASOPHILS # (AUTO) 0.1 K/uL (0.0-0.2); BASOPHILS % (AUTO) 0.7 % (0.0-2.0); EOSINOPHILS # (AUTO) 0.6 K/uL (0.0-0.4); EOSINOPHILS % (AUTO) 4.1 % (0.0-4.0); HEMATOCRIT 38.3 % (36-54); HEMOGLOBIN 12.7 g/dL (14.0-18.0); LYMPHOCYTES # (AUTO) 2.1 K/uL (1.0-5.5); LYMPHOCYTES % (AUTO) 13.7 % (20.5-51.5); MEAN CORPUSCULAR HEMOGLOBIN 29 pg (27-31); MEAN CORPUSCULAR HGB CONC 33 % (32-36); MEAN CORPUSCULAR VOLUME 89 fL (79.0-98.0); MONOCYTES # (AUTO) 0.9 K/uL (0.0-1.0); MONOCYTES % (AUTO) 6.2 % (1.7-9.3); NEUTROPHILS # (AUTO) 11.5 K/uL (1.8-7.7); NEUTROPHILS % (AUTO) 75.3 % (40.0-70.0); PLATELET COUNT (AUTO) 288 K/uL (130-430); RED BLOOD CELL COUNT(AUTO) 4.32 MIL/uL (4.2-6.2); RED CELL DISTRIBUTION WIDTH 16.8 % (9.0-15.0); WHITE BLOOD COUNT (AUTO) 15.2 K/uL (4.8-10.8)
[2021-01-03 14:26] LABS: ALBUMIN 3.2 g/dL (3.4-4.8); CALCIUM 9.2 mg/dL (8.4-11.0); CREATININE 0.84 mg/dL (0.55-1.30); POTASSIUM 4.5 mmol/L (3.5-5.1); TOTAL BILIRUBIN 0.2 mg/dL (0.0-1.0)
[~2021-01-04] VITALS: Ht 180.3 cm; Wt 83.9 kg
[~2021-01-04 12:07] MED LIST changes: -DEXAMETHASONE SOD PHOSPHATE 10 MG/ML VIAL IVP ONE; -FLUC200T51 PO; -LIDOCAINE 1% 10 MG/ML, 20 ML MDV IM ONE; -LISI-209 PO; -LR 1,000 ML IV.SOLN IV ONE; -METOCLOPRAMIDE HCL 10 MG/2 ML VIAL IVP ONE; -MIDAZOLAM HCL 5 MG/5 ML VIAL IVP ONE; -NS 1000 ML IV.SOLN IV ONE; -NS IRRIG SOLN 1000 ML IR ONE; -ONDANSETRON HCL 4 MG/2 ML VIAL IVP ONE; -PROPOFOL 200MG/ 20ML VIAL (DIPRIVAN) IV ONE; -SEVOFLURANE 15 MIN GAS INH ONE; -ePHEDrine sulfate 50 MG/ML VIAL IVP ONE; -fentaNYL CITRATE/PF 100 MCG/2 ML AMP IVP ONE
[2021-01-04] MEDS ORDERED: POLYMYXIN 500,000/BACIT.10,000 UNITS in NS IRR 1 L IR ONE (14:00)
[2021-01-04 14:01] LABS: BILIRUBIN,URINE NEGATIVE (NEGATIVE); BLOOD, URINE NEGATIVE (NEGATIVE); CLARITY/URINE CLEAR (CLEAR); COLOR,URINE YELLOW (YELLOW); GLUCOSE,URINE TRACE (NEGATIVE); KETONES,URINE NEGATIVE (NEGATIVE); LEUKOCYTE ESTERASE ,URINE NEGATIVE (NEGATIVE); NITRITE, URINE NEGATIVE (NEGATIVE); PH,URINE 5.5 (5.0-8.0); PROTEIN URINE NEGATIVE (NEGATIVE); UROBILINOGEN,URINE 0.2 (0.2-1.0)
[2021-01-04] MEDS ORDERED: BUPIVACAINE /PF 0.5% 30 ML VIAL ONE (15:33)
[2021-01-04] MEDS ORDERED: KETOROLAC TROMETHAMINE 30 MG VIAL ONE (15:33)
[2021-01-04] MEDS ORDERED: PROPOFOL 200MG/ 20ML VIAL (DIPRIVAN) IV ONE (15:33)
[2021-01-04] MEDS ORDERED: ONDANSETRON HCL 4 MG/2 ML VIAL ONE (15:33)
[2021-01-04] MEDS ORDERED: DESFLURANE 15 MIN GAS INH ONE (15:33)
[2021-01-04] MEDS ORDERED: LR 1,000 ML IV.SOLN IV ONE (15:33)
[2021-01-04] MEDS ORDERED: fentaNYL 2MCG/ML ROPIVACAINE 0.2% 100 ML EPIDURAL BAG EP ONE (15:33)
[2021-01-04] MEDS ORDERED: HYDROmorphone 1 MG/ML INJ. CARTRIDGE IVP PRN ×2 (15:45)
[2021-01-04] MEDS ORDERED: ONDANSETRON HCL 4 MG/2 ML VIAL IVP PRN (15:45)
[2021-01-04 17:18] VITALS: BP_SYST 137
== END 2021-01-04 17:45 | disposition home or self-care (01) ==
LOC: SDS 12:07 → SMU 12:26 → SDS 17:45
PROVIDERS: ATTEND Orthopaedic Surgery
DX: T87.89 Other complications of amputation stump (principal); E11.40 Type 2 diabetes mellitus with diabetic neuropathy, unspecified; Z79.899 Other long term (current) drug therapy; Y62 Failure of sterile precautions during surgical and medical care
CPT/HCPCS: 36415; 80053; 81003; 82948; 82962; 85025; 87070-TC; 87075-TC; 88304; 93005; J1885; J2405; J2704; J3010; J3490; J7120

== ENCOUNTER 2021-01-10 08:16 | Day surgery (SDC) | payer OTHER, SELFPAY ==
[~2021-01-10] VITALS: Ht 180.3 cm; Wt 83.9 kg
[2021-01-10] MEDS ORDERED: POLYMYXIN 500,000/BACIT.10,000 UNITS in NS IRR 1 L IR ONE (09:42)
[2021-01-10] MEDS ORDERED: PROPOFOL 200MG/ 20ML VIAL (DIPRIVAN) IV ONE (10:25)
[2021-01-10] MEDS ORDERED: MIDAZOLAM HCL 5 MG/5 ML VIAL IVP ONE (10:25)
[2021-01-10] MEDS ORDERED: LR 1,000 ML IV.SOLN IV ONE (10:25)
[2021-01-10] MEDS ORDERED: BUPIVACAINE /PF 0.25% 30 ML VIAL INJ ONE (10:25)
[2021-01-10] MEDS ORDERED: ONDANSETRON HCL 4 MG/2 ML VIAL IVP ONE (10:25)
[2021-01-10] MEDS ORDERED: SEVOFLURANE 15 MIN GAS INH ONE (10:25)
[2021-01-10] MEDS ORDERED: NS IRRIG SOLN 1000 ML IR ONE (10:25)
[2021-01-10] MEDS ORDERED: LIDOCAINE 1% 10 MG/ML, 20 ML MDV INJ ONE (10:25)
[2021-01-10] MEDS ORDERED: fentaNYL CITRATE/PF 100 MCG/2 ML AMP IVP ONE (10:25)
[2021-01-10] MEDS ORDERED: PHENYLEPHRINE HCL 10 MG/ML VIAL (NEOSYNEPHRINE) IV ONE (10:25)
[2021-01-10] MEDS ORDERED: METOCLOPRAMIDE HCL 10 MG/2 ML VIAL IVP PRN (11:15)
[2021-01-10] MEDS ORDERED: HYDROmorphone 1 MG/ML INJ. CARTRIDGE IVP PRN ×3 (11:15)
[2021-01-10] MEDS ORDERED: MEPERIDINE HCL/PF 25 MG/ML DISP.SYRIN IVP PRN (11:15)
[2021-01-10] MEDS ORDERED: MIDAZOLAM HCL 2 MG/2 ML VIAL (VERSED) IVP PRN (11:15)
[2021-01-10] MEDS ORDERED: LR 1,000 ML IV SCH (11:15)
[2021-01-10] MEDS ORDERED: HYDROmorphone 1 MG/ML INJ. CARTRIDGE ONE (13:49)
[2021-01-10] MEDS ORDERED: ALBUMIN HUMAN 5% 250 ML IV ONE (14:15)
[2021-01-10] MEDS ORDERED: ACETAMINOPHEN I.V. 1000 MG 100 ML IV ONE ×2 (15:00→15:07)
[2021-01-10 15:08] LABS: HEMATOCRIT 30.4 % (36-54)
[2021-01-10 16:29] VITALS: BP_SYST 101
== END 2021-01-10 17:55 | disposition home or self-care (01) ==
LOC: SDS 08:16
PROVIDERS: ATTEND Orthopaedic Surgery
DX: T87.89 Other complications of amputation stump (principal); E11.51 Type 2 diabetes mellitus with diabetic peripheral angiopathy without gangrene; Z79.899 Other long term (current) drug therapy; Y62 Failure of sterile precautions during surgical and medical care
CPT/HCPCS: 28800; 36415; 82948; 82962; 85018; 87426; 88304; 88311; J0131; J1170; J2001; J2250; J2370; J2405; J2704; J3010; J3490; J7120; 88307; P9041

== ENCOUNTER 2021-02-03 11:01 | Day surgery (SDC) | payer OTHER, SELFPAY ==
[~2021-02-03] VITALS: Ht 180.3 cm; Wt 78.5 kg
[2021-02-03 11:47] LABS: BASOPHILS # (AUTO) 0.2 K/uL (0.0-0.2); BASOPHILS % (AUTO) 1.1 % (0.0-2.0); EOSINOPHILS # (AUTO) 0.8 K/uL (0.0-0.4); EOSINOPHILS % (AUTO) 5.2 % (0.0-4.0); HEMATOCRIT 36.2 % (36-54); HEMOGLOBIN 11.9 g/dL (14.0-18.0); LYMPHOCYTES # (AUTO) 1.6 K/uL (1.0-5.5); LYMPHOCYTES % (AUTO) 10.3 % (20.5-51.5); MEAN CORPUSCULAR HEMOGLOBIN 29 pg (27-31); MEAN CORPUSCULAR HGB CONC 33 % (32-36); MEAN CORPUSCULAR VOLUME 87 fL (79.0-98.0); MONOCYTES # (AUTO) 0.9 K/uL (0.0-1.0); MONOCYTES % (AUTO) 5.5 % (1.7-9.3); NEUTROPHILS # (AUTO) 12.1 K/uL (1.8-7.7); NEUTROPHILS % (AUTO) 77.9 % (40.0-70.0); PLATELET COUNT (AUTO) 368 K/uL (130-430); RED BLOOD CELL COUNT(AUTO) 4.14 MIL/uL (4.2-6.2); RED CELL DISTRIBUTION WIDTH 16.4 % (9.0-15.0); WHITE BLOOD COUNT (AUTO) 15.6 K/uL (4.8-10.8)
[2021-02-03 11:59] LABS: ALBUMIN 3.3 g/dL (3.4-4.8); CALCIUM 9.2 mg/dL (8.4-11.0); CREATININE 0.76 mg/dL (0.55-1.30); POTASSIUM 4.7 mmol/L (3.5-5.1); TOTAL BILIRUBIN 0.2 mg/dL (0.0-1.0)
[2021-02-03] MEDS ORDERED: ONDANSETRON HCL 4 MG/2 ML VIAL IVP PRN (16:30)
[2021-02-03] MEDS ORDERED: fentaNYL CITRATE/PF 100 MCG/2 ML AMP IVP PRN ×2 (16:30)
[2021-02-03] MEDS ORDERED: NS IRRIG SOLN 1000 ML IR ONE (17:25)
[2021-02-03] MEDS ORDERED: fentaNYL CITRATE/PF 100 MCG/2 ML AMP ONE ×2 (17:25→17:37)
[2021-02-03] MEDS ORDERED: MIDAZOLAM HCL 5 MG/ML VIAL (VERSED) IV ONE (17:25)
[2021-02-03] MEDS ORDERED: SEVOFLURANE 15 MIN GAS INH ONE (17:25)
[2021-02-03] MEDS ORDERED: LR 1,000 ML IV.SOLN IV ONE (17:25)
[2021-02-03] MEDS ORDERED: BUPIVACAINE /EPINEPHRINE/PF 0.25% 30 ML VIAL INJ ONE (17:25)
[2021-02-03] MEDS ORDERED: PROPOFOL 200MG/ 20ML VIAL (DIPRIVAN) IV ONE (17:25)
[2021-02-03] MEDS ORDERED: CEFAZOLIN 1 GM IVPB PREMIX 50 ML IV ONE (17:25)
[2021-02-03] MEDS ORDERED: HYDROmorphone 2 MG/ML VIAL IVP PRN (17:45)
[2021-02-03] MEDS ORDERED: HYDROcodone/ACETAMIN 5-325 MG TAB (NORCO/ VICODIN) PO PRN (17:45)
[2021-02-03] MEDS ORDERED: ONDANSETRON 4 MG ODT TAB PO PRN (17:45)
[2021-02-03] MEDS: HYDROmorphone 1 MG/ML INJ. CARTRIDGE IVP PRN ×2 (17:47→18:04)
[2021-02-03] MEDS ORDERED: HYDROmorphone 1 MG/ML INJ. CARTRIDGE ONE (17:50)
[2021-02-03 18:30] VITALS: BP_SYST 129
[2021-02-03 20:00] VITALS: BP_SYST 146
[2021-02-03] MEDS: CEFAZOLIN 1 GM IVPB PREMIX 50 ML IV SCH (21:38)
[2021-02-03] MEDS: ENOXAPARIN SODIUM 40 MG/0.4 ML SYRINGE SUBCUT SCH (21:39)
[2021-02-03] MEDS ORDERED: ENOXAPARIN SODIUM 40 MG/0.4 ML SYRINGE ONE (21:40)
[2021-02-03] MEDS: INSULIN REGULAR, HUMAN 100 UNITS/ML, 10 ML VIAL (humuLIN R) SUBCUT PRN (21:44)
[2021-02-03] MEDS: HYDROcodone/ACETAMIN 5-325 MG TAB (NORCO/ VICODIN) PO PRN (21:46)
[2021-02-04 01:00] VITALS: BP_SYST 99
[2021-02-04] MEDS: CEFAZOLIN 1 GM IVPB PREMIX 50 ML IV SCH (06:24)
[2021-02-04] MEDS: HYDROcodone/ACETAMIN 5-325 MG TAB (NORCO/ VICODIN) PO PRN ×3 (06:25→20:10)
[2021-02-04] MEDS: INSULIN REGULAR, HUMAN 100 UNITS/ML, 10 ML VIAL (humuLIN R) SUBCUT PRN ×3 (06:32→20:51)
[2021-02-04 06:55] LABS: BASOPHILS # (AUTO) 0.1 K/uL (0.0-0.2); BASOPHILS % (AUTO) 0.7 % (0.0-2.0); EOSINOPHILS % (AUTO) 5.5 % (0.0-4.0); HEMATOCRIT 31.8 % (36-54); HEMOGLOBIN 10.2 g/dL (14.0-18.0); LYMPHOCYTES # (AUTO) 2.3 K/uL (1.0-5.5); LYMPHOCYTES % (AUTO) 13.1 % (20.5-51.5); MEAN CORPUSCULAR HEMOGLOBIN 28 pg (27-31); MEAN CORPUSCULAR HGB CONC 32 % (32-36); MEAN CORPUSCULAR VOLUME 87 fL (79.0-98.0); MONOCYTES # (AUTO) 1.5 K/uL (0.0-1.0); MONOCYTES % (AUTO) 8.3 % (1.7-9.3); NEUTROPHILS # (AUTO) 12.8 K/uL (1.8-7.7); NEUTROPHILS % (AUTO) 72.4 % (40.0-70.0); PLATELET COUNT (AUTO) 315 K/uL (130-430); RED BLOOD CELL COUNT(AUTO) 3.65 MIL/uL (4.2-6.2); RED CELL DISTRIBUTION WIDTH 16.1 % (9.0-15.0); WHITE BLOOD COUNT (AUTO) 17.7 K/uL (4.8-10.8)
[2021-02-04 08:00] VITALS: BP_SYST 119
[2021-02-04 08:15] LABS: CALCIUM 8.7 mg/dL (8.4-11.0); CREATININE 0.76 mg/dL (0.55-1.30); POTASSIUM 4.4 mmol/L (3.5-5.1)
[2021-02-04] MEDS ORDERED: ENOXAPARIN SODIUM 40 MG/0.4 ML SYRINGE SUBCUT SCH (09:00)
[2021-02-04 12:00] VITALS: BP_SYST 103
[2021-02-04 18:53] VITALS: BP_SYST 119
[2021-02-04 19:45] VITALS: BP_SYST 141
[2021-02-04 20:00] VITALS: BP_SYST 141
[2021-02-04] MEDS: ENOXAPARIN SODIUM 40 MG/0.4 ML SYRINGE SUBCUT SCH (21:00)
== END 2021-02-04 23:34 ==
LOC: SDS 11:01 → STU 11:07 → EDSTATUS 13:00 → SMU 18:11 → SDS 02-04 23:34
PROVIDERS: ATTEND Orthopaedic Surgery
DX: S98.142A Partial traumatic amputation of one left lesser toe, initial encounter (principal); Z89.431 Acquired absence of right foot; X58.XXXA Exposure to other specified factors, initial encounter; Y93.89 Activity, other specified; Y92.89 Other specified places as the place of occurrence of the external cause; Y99.8 Other external cause status; S98.222A Partial traumatic amputation of two or more left lesser toes, initial encounter; S98.221A Partial traumatic amputation of two or more right lesser toes, initial encounter
CPT/HCPCS: 11043; 36415; 80053; 82962; 85025; 87070; 87075; 87081; 87186; 87426; 88304; J0690; J1170 ×2; J1650 ×2; J1815; J2250; J2704; J3010; J3490; J7120; 80048

== ENCOUNTER 2022-06-12 18:05 | Inpatient (IN) | payer OTHER, MEDICAID ==
[~2022-06-12] VITALS: Ht 180.3 cm; Wt 90.3 kg
[2022-06-12 18:30] VITALS: BP_SYST 121
[2022-06-12 20:19] LABS: BASOPHILS # (AUTO) 0.1 K/uL (0.0-0.2); BASOPHILS % (AUTO) 0.5 % (0.0-2.0); EOSINOPHILS # (AUTO) 0.2 K/uL (0.0-0.4); EOSINOPHILS % (AUTO) 1.2 % (0.0-4.0); HEMATOCRIT 44.8 % (36-54); LYMPHOCYTES # (AUTO) 2.7 K/uL (1.0-5.5); LYMPHOCYTES % (AUTO) 13.6 % (20.5-51.5); MEAN CORPUSCULAR HEMOGLOBIN 30 pg (27-31); MEAN CORPUSCULAR HGB CONC 34 % (32-36); MEAN CORPUSCULAR VOLUME 88 fL (79.0-98.0); MONOCYTES # (AUTO) 1.4 K/uL (0.0-1.0); MONOCYTES % (AUTO) 7.1 % (1.7-9.3); NEUTROPHILS # (AUTO) 15.4 K/uL (1.8-7.7); NEUTROPHILS % (AUTO) 77.6 % (40.0-70.0); PLATELET COUNT (AUTO) 281 K/uL (130-430); RED CELL DISTRIBUTION WIDTH 14.3 % (9.0-15.0); WHITE BLOOD COUNT (AUTO) 19.9 K/uL (4.8-10.8)
[2022-06-12 20:33] LABS: ANION GAP 10 (5-15); CALCIUM 9.3 mg/dL (8.4-11.0); CHLORIDE 95 mmol/L (98-107); CREATININE 0.85 mg/dL (0.55-1.30); GLUCOSE 289 mg/dL (70-99); UREA NITROGEN, BLOOD 25 mg/dL (8-21)
[2022-06-12 20:38] LABS: ALANINE AMINOTRANSFERASE 17 U/L (12-78); ALBUMIN 3.1 g/dL (3.4-4.8); ASPARTATE AMINOTRANSFERASE < 5 U/L (10-37); C-REACTIVE PROTEIN QUANT 6.5 mg/dL (0-0.5); TOTAL BILIRUBIN 0.3 mg/dL (0.0-1.0)
[2022-06-12 20:51] LABS: GFR AFRICAN AMERICAN 116 mL/min (>90)
[2022-06-12] MEDS ORDERED: CLINDAMYCIN 600 mg/50mL D5W 50 ML IV ONE (21:15)
[2022-06-12] MEDS ORDERED: INSULIN REGULAR, HUMAN 100 UNITS/ML, 3 ML VIAL (humuLIN R) SUBCUT PRN (21:30)
[2022-06-12] MEDS ORDERED: INSULIN REGULAR, HUMAN 100 UNITS/ML, 3 ML VIAL (humuLIN R) SUBCUT SCH (21:30)
[2022-06-12] MEDS: NACL 0.9% 1,000 ML IV SCH (21:30)
[2022-06-12] MEDS ORDERED: VANCOMYCIN HCL 1,000 MG in NS 250 ML IV ONE (22:00)
[2022-06-12] MEDS ORDERED: NALOXONE HCL 0.4 MG/ML AMP (NARCAN) IVP PRN (23:00)
[2022-06-12] MEDS ORDERED: HYDROcodone/ACETAMIN 5-325 MG TAB (NORCO/ VICODIN) PO PRN (23:00)
[2022-06-12] MEDS ORDERED: VANCOMYCIN HCL 1000 MG/VIAL IV ONE (23:31)
[2022-06-12] MEDS ORDERED: PIPERACILLIN/TAZOBACTAM 3.375 GM/VIAL (ZOSYN) IV ONE (23:32)
[2022-06-12] MEDS: GABAPENTIN 100 MG CAPSULE PO SCH (23:39)
[2022-06-13] MEDS ORDERED: PIPERACILLIN/TAZO 3.375 GM in NS 50 ML IV SCH ×2
[2022-06-13 07:27] LABS: BASOPHILS % (AUTO) 0.3 % (0.0-2.0); EOSINOPHILS # (AUTO) 0.2 K/uL (0.0-0.4); EOSINOPHILS % (AUTO) 1.4 % (0.0-4.0); HEMATOCRIT 42.3 % (36-54); HEMOGLOBIN 14.2 g/dL (14.0-18.0); LYMPHOCYTES # (AUTO) 1.7 K/uL (1.0-5.5); LYMPHOCYTES % (AUTO) 12.2 % (20.5-51.5); MEAN CORPUSCULAR HEMOGLOBIN 29 pg (27-31); MEAN CORPUSCULAR HGB CONC 34 % (32-36); MEAN CORPUSCULAR VOLUME 88 fL (79.0-98.0); MONOCYTES # (AUTO) 1.4 K/uL (0.0-1.0); NEUTROPHILS # (AUTO) 10.8 K/uL (1.8-7.7); NEUTROPHILS % (AUTO) 76.1 % (40.0-70.0); PLATELET COUNT (AUTO) 227 K/uL (130-430); RED BLOOD CELL COUNT(AUTO) 4.84 MIL/uL (4.2-6.2); RED CELL DISTRIBUTION WIDTH 14.1 % (9.0-15.0); WHITE BLOOD COUNT (AUTO) 14.1 K/uL (4.8-10.8)
[2022-06-13 07:48] LABS: CALCIUM 8.7 mg/dL (8.4-11.0); CREATININE 0.82 mg/dL (0.55-1.30)
[2022-06-13 07:50] LABS: INR 1.1 (0.80-1.20); PROTHROMBIN TIME 10.8 SECS (9.5-12.5)
[2022-06-13] MEDS: metFORMIN HCL 500 MG TABLET PO SCH ×2 (08:00→17:56)
[2022-06-13] MEDS ORDERED: PIPERACILLIN/TAZOBACTAM 3.375 GM/VIAL (ZOSYN) IV ONE (08:45)
[2022-06-13] MEDS: GABAPENTIN 100 MG CAPSULE PO SCH ×3 (09:00→21:03)
[2022-06-13 11:24] VITALS: BP_SYST 128
[2022-06-13 12:00] VITALS: BP_SYST 132
[2022-06-13] MEDS: PIPERACILLIN/TAZO 3.375 GM in NS 50 ML IV SCH ×2 (12:00→17:56)
[2022-06-13] MEDS: INSULIN GLARGINE 100 UNITS/ML, 10 ML VIAL SUBCUT SCH ×2 (13:19→21:07)
[2022-06-13] MEDS: ENOXAPARIN SODIUM 40 MG/0.4 ML SYRINGE SUBCUT SCH (13:21)
[2022-06-13] MEDS: FOLIC ACID 1 MG TABLET PO SCH (13:21)
[2022-06-13] MEDS: ASCORBIC ACID 500 MG TABLET PO SCH ×2 (13:21→21:03)
[2022-06-13] MEDS ORDERED: BALSAM PERU/CASTOR OIL 56.7 GM OINT...G. TP ONE (14:30)
[2022-06-13] MEDS: NACL 0.9% 1,000 ML IV SCH (15:25)
[2022-06-13] MEDS: VANCOMYCIN HCL 1,250 MG in NS 250 ML IV SCH (15:26)
[2022-06-13 16:00] VITALS: BP_SYST 138
[2022-06-13 19:58] VITALS: BP_SYST 110
[2022-06-14 00:05] VITALS: BP_SYST 113
[2022-06-14] MEDS: PIPERACILLIN/TAZO 3.375 GM in NS 50 ML IV SCH ×2 (00:29→06:04)
[2022-06-14] MEDS: NACL 0.9% 1,000 ML IV SCH ×2 (00:29→13:30)
[2022-06-14] MEDS: VANCOMYCIN HCL 1,250 MG in NS 250 ML IV SCH ×2 (02:50→15:54)
[2022-06-14 06:19] LABS: BASOPHILS % (AUTO) 0.3 % (0.0-2.0); EOSINOPHILS # (AUTO) 0.2 K/uL (0.0-0.4); EOSINOPHILS % (AUTO) 1.7 % (0.0-4.0); HEMOGLOBIN 13.1 g/dL (14.0-18.0); LYMPHOCYTES # (AUTO) 1.7 K/uL (1.0-5.5); LYMPHOCYTES % (AUTO) 13.1 % (20.5-51.5); MEAN CORPUSCULAR HEMOGLOBIN 30 pg (27-31); MEAN CORPUSCULAR HGB CONC 34 % (32-36); MEAN CORPUSCULAR VOLUME 88 fL (79.0-98.0); MONOCYTES # (AUTO) 1.3 K/uL (0.0-1.0); MONOCYTES % (AUTO) 9.8 % (1.7-9.3); NEUTROPHILS # (AUTO) 9.9 K/uL (1.8-7.7); NEUTROPHILS % (AUTO) 75.1 % (40.0-70.0); PLATELET COUNT (AUTO) 239 K/uL (130-430); RED BLOOD CELL COUNT(AUTO) 4.44 MIL/uL (4.2-6.2); RED CELL DISTRIBUTION WIDTH 14.1 % (9.0-15.0); WHITE BLOOD COUNT (AUTO) 13.2 K/uL (4.8-10.8)
[2022-06-14 07:01] LABS: CALCIUM 8.8 mg/dL (8.4-11.0); CREATININE 0.9 mg/dL (0.55-1.30)
[2022-06-14 07:08] LABS: ERYTHROCYTE SEDIMENTATION RATE 49 MM/HR (0-15)
[2022-06-14] MEDS: GABAPENTIN 100 MG CAPSULE PO SCH ×3 (08:45→20:40)
[2022-06-14] MEDS: FOLIC ACID 1 MG TABLET PO SCH (08:45)
[2022-06-14] MEDS: metFORMIN HCL 500 MG TABLET PO SCH ×2 (08:46→17:17)
[2022-06-14] MEDS: ASCORBIC ACID 500 MG TABLET PO SCH ×2 (08:46→20:40)
[2022-06-14] MEDS: ENOXAPARIN SODIUM 40 MG/0.4 ML SYRINGE SUBCUT SCH (08:47)
[2022-06-14] MEDS: INSULIN GLARGINE 100 UNITS/ML, 10 ML VIAL SUBCUT SCH ×2 (08:50→21:42)
[2022-06-14] MEDS: BALSAM PERU/CASTOR OIL 56.7 GM OINT...G. TP SCH (09:30)
[2022-06-14 11:26] VITALS: BP_SYST 122
[2022-06-14 15:03] VITALS: BP_SYST 127
[2022-06-14 20:10] VITALS: BP_SYST 151
[2022-06-14] MEDS: CEFEPIME 2 GM in D5W 100 ML IV SCH (20:40)
[2022-06-14] MEDS ORDERED: INSULIN REGULAR, HUMAN 100 UNITS/ML, 3 ML VIAL (humuLIN R) SUBCUT SCH (21:00)
[2022-06-15 00:19] LABS: INR 0.9 (0.80-1.20); PROTHROMBIN TIME 9.5 SECS (9.5-12.5)
[2022-06-15 00:20] VITALS: BP_SYST 105
[2022-06-15] MEDS: NACL 0.9% 1,000 ML IV SCH ×2 (03:05→16:10)
[2022-06-15] MEDS: VANCOMYCIN HCL 1,250 MG in NS 250 ML IV SCH ×2 (03:05→16:02)
[2022-06-15] MEDS: INSULIN REGULAR, HUMAN 100 UNITS/ML, 3 ML VIAL (humuLIN R) SUBCUT PRN ×3 (06:38→23:16)
[2022-06-15 08:38] VITALS: BP_SYST 135
[2022-06-15] MEDS: FOLIC ACID 1 MG TABLET PO SCH (09:56)
[2022-06-15] MEDS: CEFEPIME 2 GM in D5W 100 ML IV SCH ×2 (09:56→23:05)
[2022-06-15] MEDS: ASCORBIC ACID 500 MG TABLET PO SCH ×2 (09:56→23:06)
[2022-06-15] MEDS: ENOXAPARIN SODIUM 40 MG/0.4 ML SYRINGE SUBCUT SCH (10:01)
[2022-06-15] MEDS: INSULIN GLARGINE 100 UNITS/ML, 10 ML VIAL SUBCUT SCH ×2 (10:03→23:14)
[2022-06-15] MEDS: GABAPENTIN 100 MG CAPSULE PO SCH ×3 (10:05→23:06)
[2022-06-15] MEDS: metFORMIN HCL 500 MG TABLET PO SCH ×2 (10:06→18:30)
[2022-06-15] MEDS: BALSAM PERU/CASTOR OIL 56.7 GM OINT...G. TP SCH (10:07)
[2022-06-15 11:58] VITALS: BP_SYST 138
[2022-06-15] MEDS ORDERED: MILK OF MAGNESIA 30 ML UDC PO PRN (13:15)
[2022-06-15 16:38] VITALS: BP_SYST 105
[2022-06-15 20:15] VITALS: BP_SYST 151
[2022-06-15] MEDS: DOCUSATE SODIUM 100 MG CAPSULE PO SCH (23:21)
[2022-06-16 01:26] VITALS: BP_SYST 124
[2022-06-16] MEDS: VANCOMYCIN HCL 1,250 MG in NS 250 ML IV SCH (03:49)
[2022-06-16 04:27] LABS: BASOPHILS # (AUTO) 0.1 K/uL (0.0-0.2); BASOPHILS % (AUTO) 0.5 % (0.0-2.0); EOSINOPHILS # (AUTO) 0.3 K/uL (0.0-0.4); EOSINOPHILS % (AUTO) 2.7 % (0.0-4.0); HEMATOCRIT 38.1 % (36-54); HEMOGLOBIN 12.7 g/dL (14.0-18.0); LYMPHOCYTES # (AUTO) 2.4 K/uL (1.0-5.5); MEAN CORPUSCULAR HEMOGLOBIN 29 pg (27-31); MEAN CORPUSCULAR HGB CONC 33 % (32-36); MEAN CORPUSCULAR VOLUME 87 fL (79.0-98.0); MONOCYTES # (AUTO) 1.1 K/uL (0.0-1.0); MONOCYTES % (AUTO) 8.8 % (1.7-9.3); NEUTROPHILS # (AUTO) 8.2 K/uL (1.8-7.7); PLATELET COUNT (AUTO) 239 K/uL (130-430); RED BLOOD CELL COUNT(AUTO) 4.38 MIL/uL (4.2-6.2); WHITE BLOOD COUNT (AUTO) 12.1 K/uL (4.8-10.8)
[2022-06-16 04:52] LABS: ALBUMIN 2.2 g/dL (3.4-4.8); CALCIUM 8.4 mg/dL (8.4-11.0); CREATININE 0.74 mg/dL (0.55-1.30); TOTAL BILIRUBIN 0.2 mg/dL (0.0-1.0)
[2022-06-16] MEDS: NACL 0.9% 1,000 ML IV SCH (05:55)
[2022-06-16 08:00] VITALS: BP_SYST 135
[2022-06-16] MEDS: GABAPENTIN 100 MG CAPSULE PO SCH (08:53)
[2022-06-16] MEDS: DOCUSATE SODIUM 100 MG CAPSULE PO SCH (08:53)
[2022-06-16] MEDS: metFORMIN HCL 500 MG TABLET PO SCH (08:54)
[2022-06-16] MEDS: FOLIC ACID 1 MG TABLET PO SCH (08:54)
[2022-06-16] MEDS: ASCORBIC ACID 500 MG TABLET PO SCH (08:54)
[2022-06-16] MEDS: CEFEPIME 2 GM in D5W 100 ML IV SCH (08:55)
[2022-06-16] MEDS: INSULIN GLARGINE 100 UNITS/ML, 10 ML VIAL SUBCUT SCH (08:58)
[2022-06-16] MEDS: ENOXAPARIN SODIUM 40 MG/0.4 ML SYRINGE SUBCUT SCH (08:58)
[2022-06-16] MEDS: BALSAM PERU/CASTOR OIL 56.7 GM OINT...G. TP SCH (08:58)
[2022-06-16 11:44] VITALS: BP_SYST 139
[2022-06-16 11:48] VITALS: BP_SYST 135
== END 2022-06-16 12:40 | DRG 565 ==
LOC: SED 18:05 → SMU 21:26
PROVIDERS: ADMIT Internal Medicine; ATTEND Internal Medicine
DX: T87.43 Infection of amputation stump, right lower extremity (principal); E46 Unspecified protein-calorie malnutrition; L03.115 Cellulitis of right lower limb; M86.8X7 Other osteomyelitis, ankle and foot; E11.69 Type 2 diabetes mellitus with other specified complication; E11.51 Type 2 diabetes mellitus with diabetic peripheral angiopathy without gangrene; F17.210 Nicotine dependence, cigarettes, uncomplicated; Z20.822 Contact with and (suspected) exposure to COVID-19; Y83.5 Amputation of limb(s) as the cause of abnormal reaction of the patient, or of later complication, without mention of misadventure at the time of the procedure; D64.9 Anemia, unspecified; Z68.27 Body mass index [BMI] 27.0-27.9, adult; Z89.431 Acquired absence of right foot; Y92.89 Other specified places as the place of occurrence of the external cause
CPT/HCPCS: 36415; 71045; 73721; 80048; 80053; 80202; 83037; 83605; 85025; 85610-TC; 85651-TC; 85730-TC; 86140; 87040; 87070-TC; 87075-TC; 87081; 87186-TC; 96365; 96367; 96372; 99285; J0692; J1650; J1815; J2543; J3370; J3490; J7050; J7060